=== PATIENT | male | born 1970 | race Caucasian/White ===

== ENCOUNTER 2024-11-24 14:02 | Inpatient (IN) | payer OTHER, SELFPAY ==
[2024-11-24] VITALS (39 sets, daily range): BP systolic 100–180; BP diastolic 59–99; BMI 32.1
--- NOTE | 2024-11-24 09:26 | ED.GENMED ---
History of Present Illness
<Katarzyna Robin LANDMEN - Last Filed: 11/24/24 16:01>
General
Chief Complaint: Chest Pain
Source: patient
Exam Limitations: none
Time Seen by Provider: 11/24/24 09:16
Nursing documentation reviewed up to this point in time: agreed with
History of Present Illness
History of Present Illness:
54 yo male with no significant PMHX states he woke at 3 a.m. with mid non radiating CP, thought it was indigestion, took TUMS with no relief. Didn't sleep since and pain has been consistent, 2/10 'annoying.' A little while after CP noted, right
upper arm felt 'sore' and then at 7 a.m. left upper arm felt 'sore.'
Denies n/v/d/c. Denies SOB, abd pain. Denies lightheadedness, weakness, numbness in extremities.
No recollection of overuse or injury to cause sore upper arms
Past History
<Katarzyna Robin, LANDMEN - Last Filed: 11/24/24 16:01>
Past History
ED Past Medical History: None
ED Past Surgical History: Orthopedic (Knee arthroscopy)
Social History
Tobacco: Smoker
Alcohol: Occasional
Personal:
Living: with family
Employment: Employed
Family History
Family History: CAD (Mother MS age 60 w bypass, still alive. Maternal uncle MS age 40, still alive)
Review of Systems
<Katarzyna Robin LANDMEN - Last Filed: 11/24/24 16:01>
Review of Systems
Allergies reviewed?: Yes
All Other Systems: ROS reviewed and negative except as documented in HPI and ROS
Constitutional: Denies fever or fatigue
Respiratory: Denies trouble breathing
Cardiac: Reports chest pain; Denies diaphoresis or palpitations
ABD/GI: Denies abdominal pain, nausea, vomiting or diarrhea
Phy Exam
<Katarzyna Robin, LANDMEN - Last Filed: 11/24/24 16:01>
Physical Exam
Physical Exam:
GENERAL: No acute distress. A&Ox3.
CONSTITUTIONAL: Afebrile.
EYES: clear, conjunctivae normal
ENMT: moist mucus membranes, Pharynx nl
RESPIRATORY: Regular respirations, nonlabored, lungs clear.
CARDIOVASCULAR: Regular rate and rhythm, no murmurs, no rubs.
GI: Soft, nontender, normal BS
MUSCULOSKELETAL: Moves with ease. Well perfused.
SKIN: Warm, dry, pink
PSYCH: Normal mood and affect. Well kept, interactive and appropriate
NEUROLOGIC: Awake, alert and oriented. No focal neurological deficits
Scores
<Katarzyna Robin, LANDMEN - Last Filed: 11/24/24 16:01>
Heart Score for Chest Pain Patients
STEMI patient?: No
History: Moderately Suspicious
ECG: Nonspecific Repolarization
Age: </= 45 years
Risk Factors: >/= 3 Risk Factors or History of CAD
Troponin: >/= 3 x Normal Limit
Heart Score for Chest Pain Patients: 6
Heart Score Risk: 20.3% MACE over next 6 weeks
Course
<Katarzyna Robin, LANDMEN - Last Filed: 11/24/24 16:01>
Orders/Labs/Results
Orders:
Orders
11/24/24 08:22
EKG [Electrocardiogram (*1)] Urgent
Reason for Study: Chest Pain
EKG- Treatment ONCE
11/24/24 09:22
Complete Blood Count/With Diff Urgent
Comprehensive Metabolic Panel Urgent
PTT Urgent
Comment: Obtain baseline before beginning heparin infusion if not already collected
Prothrombin Time Urgent
Troponin I Urgent
11/24/24 09:26
CR Chest - 2 Views Urgent
Comment:
Reason For Exam: chest pain
11/24/24 Lunch
NPO
Allow oral meds: No
Allow clear liquids: No
11/24/24 10:12
Heparin 4,000 units IV NOW STA
Nursing to Place Non Medication Order As Directed
Physician Order: PTT 6 hours after initial start of Heparin infusion
Above order entered?: Yes
11/24/24 10:13
Aspirin Chewable [Low Strength Aspirin] 324 mg PO NOW STA
11/24/24 10:14
Electrocardiogram (*1) Urgent
Reason for Study: Chest Pain
EKG- Treatment ONCE
11/24/24 10:15
Heparin 13761 Units/250 ml 25,000 units in 250 ml IV PER PROTOCOL
Weight to be used for heparin protocol in kilograms (kg):: 104.326
Protocol:: Cardiac Tx/Acute Coronary
PTT Goal Range to be used:: PTT 73 to 111 seconds
Order type:: Initial
INITIAL Infusion Dose (UNITS/KG/hr) & then follow protocol:: 12 units/kg/hr
Infusion Dose in UNITS/hr & then follow protocol (UNITS/hr):: 1,000
INFUSION RATE in mL/hr & then follow protocol (mL/hr):: 10
PTT less than or equal to 64 seconds:: Increase rate by 200 units/hr (+ 2 mL/hr)
PTT 64.1 to 72.9 seconds:: Increase rate by 100 units/hr (+ 1 mL/hr)
PTT 73 to 111 seconds:: Target Range. No change in rate.
PTT 111.1 to 130.9 seconds:: Decrease rate by 100 units/hr (- 1 mL/hr)
PTT 131 to 199.9 seconds:: HOLD for 1 hr. Then decrease rate by 200 units/hr (- 2 mL/hr)
PTT greater than or equal to 200 seconds:: HOLD for 2 hrs & Notify Provider. Then decrease by 200 units/hr (-
2 mL/hr)
Lab follow-up:: Each change, PTT q6h until 2 consecutive are therapeutic. Then PTT
daily.
11/24/24 10:17
CARDIOLOGY CONSULT Urgent
Consulting Provider: Cooper Taveras
Was physician already notified: Yes
Reason for consult: Claribel
Nitroglycerin Sublingual [Nitrostat (Sublingual)] 0.4 mg SL NOW STA
11/24/24 10:27
Nitroglycerin 100 mg/250 ml [Nitroglycerin Premix] 100 mg in 250 ml .ROUTE .STK-MED
11/24/24 10:32
Nitroglycerin 100 mg/250 ml [Nitroglycerin Premix] 100 mg in 250 ml IV NOW
Initial dose in mcg/min, then titrate:: 10
Titrate to keep:: SBP < 160 mmHg
Titrate by mcg/min:: 5 mcg/min, may increase by 10 mcg/min if dose > 20 mcg/min
Frequency of titrations (minutes):: every 3-5 minutes
Maximum dose in mcg/min:: 200
Begin to taper infusion when:: Remained at goal for 2hrs
Taper by mcg/min:: 5 mcg/min
Frequency of taper (minutes) if patient maintains goal:: 30
Taper to off?: Yes
If infusion off & no longer maintaining goal:: Contact Provider
11/24/24 10:55
Add On- LAB Urgent
Tests Added?: PT/INR
11/24/24 11:01
Echo 2D MMode Color/Doppler Urgent
Reason for Study: chest pain, elevated troponin
11/24/24 12:46
Verapamil Injectable [Isoptin/Verapamil Injection] 5 mg .ROUTE .STK-MED ONE
11/24/24 12:47
Heparin 1000 Units/500 ml [Heparin] 1,000 units in 500 ml .ROUTE .STK-MED
Heparin Sodium,Porcine/Ns/Pf [Heparin 2000 Units/1000 ml] 2,000 unit in 1,000 ml .ROUTE .STK-MED
Lidocaine HCl/Pf [Xylocaine-Mpf 1% Vial] 50 mg .ROUTE .STK-MED ONE
Nitroglycerin [Tridil] 1,500 mcg .ROUTE .STK-MED ONE
11/24/24 12:52
Fentanyl Citrate/Pf [Sublimaze] 100 mcg .ROUTE .STK-MED ONE
Heparin 10,000 units .ROUTE .STK-MED ONE
Midazolam HCl [Versed] 2 mg .ROUTE .STK-MED ONE
11/24/24 13:40
Acetaminophen [Tylenol] 650 mg PO Q4HPRN PRN
Activity As Directed
Activity Level: Out of Bed- Ad Jewell
Activity Frequency: Ad Jewell
Bee Worker Procedure As Directed
Cardiac Cath Procedure: cardiac catheterization
Notify MD As Directed
Notify physician if: immediately for chest pain or bleeding from access site(s)
Radial Artery Hemostasis Method As Directed
Instructions:: 3 mL out at 1 hour post placement of band
3 mL out at 1 1/2 hours post placement of band
3 mL out at 2 hours post placement of band
Off at 2 1/2 hours post placement of band
If any oozing or hemotoma occurs:: re-inflate band and call provider
Site Checks As Directed
Check access site for bleeding/hematoma: Yes
Comment: on arrival, Q15min x4, Q30min x2, Q1 hr x2, Q2 hr x2, Q4 hr or per
protocol
Vascular Checks As Directed
Location: distal to access site - pulse check
Frequency: Other
Comment: on arrival, Q15min x4, Q30min x2, Q1 hr x2, Q2 hr x2, Q4 hr or per protocol
Vital Signs As Directed
Frequency: Other
Additional Instructions:: on arrival, Q15min x4, Q30min x2, Q1 hr x2, Q2 hr x2, then Q4 hr or per unit
protocol
11/24/24 13:43
Cardiothoracic Surgery Consult Routine
Consulting Provider: Ronald Jaimes
Was physician already notified: Yes
Reason for Consult: CABG eval
11/24/24 13:45
0.9% Sodium Chloride 1000 ml [Nss] 1,000 ml IV PER PROTOCOL
Infusion rate in mL/kg/hr:: 1.5
Infusion rate in mL/hr:: 156
Duration of infusion (hours):: 3
11/24/24 14:02
Admit/Transfer Patient As Directed
Co-Sign Provider:
Level of Care: Inpatient admission
Assign to:: IVU
Physician / Group: carline dodd
Transfer to: IVU
Reason for Hospitalization: ches pain, unstable angina/nstemi
Expected length of stay greater than two midnights?: Yes
ELOS- Estimated Length of Stay in days: 2
I certify the patient meets the requirements for IP care: Yes
PRN Pain Medication Management As Directed
May give lesser potent ordered pain med per pt: Yes
preference::
Protocol:: Medication orders for pain may be administered in a
manner that supports deferring to patient preference
when the pt is:
- Requesting an ordered lesser potent pain medication.
Least to most potent pain medications are defined
as: acetaminophen < NSAID < tramadol < opioids
(morphine, oxycodone, hydromorphone).
- Requesting a lesser dose of the same medication IF
ORDERED.
- Requesting a less intrusive route of administration
if both routes are prescribed by the provider (PO <
IV).
11/24/24 14:12
Code Status As Directed
Resuscitation Status: Full Code
11/24/24 15:00
Lisinopril [Zestril] 2.5 mg PO DAILY
11/24/24 15:15
0.9% Sodium Chloride 1000 ml [Nss] 1,000 ml IV PER PROTOCOL
Infusion rate in mL/kg/hr:: 1.5
Infusion rate in mL/hr:: 156
Duration of infusion (hours):: 3
11/24/24 15:36
Verapamil Injectable [Isoptin/Verapamil Injection] 5 mg .ROUTE .STK-MED ONE
11/24/24 15:37
Fentanyl Citrate/Pf [Sublimaze] 100 mcg .ROUTE .STK-MED ONE
Heparin 10,000 units .ROUTE .STK-MED ONE
Heparin 1000 Units/500 ml [Heparin] 1,000 units in 500 ml .ROUTE .STK-MED
Heparin Sodium,Porcine/Ns/Pf [Heparin 2000 Units/1000 ml] 2,000 unit in 1,000 ml .ROUTE .STK-MED
Lidocaine HCl/Pf [Xylocaine-Mpf 1% Vial] 50 mg .ROUTE .STK-MED ONE
Midazolam HCl [Versed] 2 mg .ROUTE .STK-MED ONE
Nitroglycerin [Tridil] 1,500 mcg .ROUTE .STK-MED ONE
11/24/24 15:43
Troponin I Q6H
11/24/24 15:56
Accucheck [Bedside Glucose Monitoring] As Directed
Frequency: AC&HS
11/24/24 15:57
Dextrose 50%-Water [Dextrose 50% Syringe] 12.5 grams IV [id number] PRN
Glucagon [GlucaGen] 1 mg IM PRN PRN
11/24/24 16:30
Insulin Aspart Corrective Low [Novolog Flexpen-Low Resistance] See Protocol SC AC
11/24/24 18:00
Atorvastatin [Lipitor] 80 mg PO QPM
Atorvastatin [Lipitor] 80 mg PO QPM
11/24/24 21:00
Troponin I Q6H
11/25/24 03:00
Troponin I Q6H
11/25/24 06:00
Basic Metabolic Panel IN AM
Cardiovascular Evaluation IN AM
Complete Blood Count/No Diff IN AM
Hemoglobin A1c [Glycohemoglobin (HgbA1c)] IN AM
11/25/24 08:00
Aspirin Chewable [Low Strength Aspirin] 81 mg PO DAILY
Aspirin Chewable [Low Strength Aspirin] 81 mg PO DAILY
Abnormal Lab Results
11/24/24
09:22
WBC 16.0 H 10^3/uL
(4.8-10.8)
MPV 11.2 H fL
(7.4-10.4)
Abs Immat Gran (auto) 0.1 H 10^3/uL
(0-0.05)
Absolute Neuts (auto) 12.8 H 10^3/uL
(1.4-6.5)
Absolute Monos (auto) 0.8 H 10^3/uL
(0.1-0.6)
Neutrophils % 80.1 H %
(42.2-75.2)
Lymphocytes % 14.2 L %
(20.5-51.1)
Carbon Dioxide 21 L mmol/L
(22-30)
Creatinine 0.5 L mg/dL
(0.7-1.3)
Glucose 345 H mg/dl
(70-99)
Calcium 10.9 H mg/dl
(8.4-10.2)
Alkaline Phosphatase 136 H U/L
(38-126)
Troponin I 0.892 H* ng/ml
11/24/24 09:22
11/24/24 09:22
Vital Signs
Initial and Last Documented VS:
Initial Vital Signs
Temp Pulse Resp BP Pulse Ox
98.9 F 99 18 180/96 100
11/24/24 08:26 11/24/24 08:26 11/24/24 08:26 11/24/24 08:26 11/24/24 08:26
Last Documented Vital Signs
Temp Pulse Resp BP Pulse Ox
98.6 F 103 18 149/80 96
11/24/24 13:50 11/24/24 15:04 11/24/24 13:50 11/24/24 15:04 11/24/24 13:50
Third Grade Teacher consulted with Physician
Third Grade Teacher consulted with physician?: Yes
Name of Physician Consulted: Jony
<Keagan Borges MD - Last Filed: 11/24/24 10:42>
Orders/Labs/Results
Orders:
Orders
11/24/24 08:22
EKG [Electrocardiogram (*1)] Urgent
Reason for Study: Chest Pain
EKG- Treatment ONCE
11/24/24 09:22
Complete Blood Count/With Diff Urgent
Comprehensive Metabolic Panel Urgent
PTT Urgent
Comment: Obtain baseline before beginning heparin infusion if not already collected
Prothrombin Time Urgent
Troponin I Urgent
11/24/24 09:26
CR Chest - 2 Views Urgent
Comment:
Reason For Exam: chest pain
11/24/24 Lunch
NPO
Allow oral meds: No
Allow clear liquids: No
11/24/24 10:12
Heparin 4,000 units IV NOW STA
Nursing to Place Non Medication Order As Directed
Physician Order: PTT 6 hours after initial start of Heparin infusion
Above order entered?: Yes
11/24/24 10:13
Aspirin Chewable [Low Strength Aspirin] 324 mg PO NOW STA
11/24/24 10:14
Electrocardiogram (*1) Urgent
Reason for Study: Chest Pain
EKG- Treatment ONCE
11/24/24 10:15
Heparin 20201 Units/250 ml 25,000 units in 250 ml IV PER PROTOCOL
Weight to be used for heparin protocol in kilograms (kg):: 104.326
Protocol:: Cardiac Tx/Acute Coronary
PTT Goal Range to be used:: PTT 73 to 111 seconds
Order type:: Initial
INITIAL Infusion Dose (UNITS/KG/hr) & then follow protocol:: 12 units/kg/hr
Infusion Dose in UNITS/hr & then follow protocol (UNITS/hr):: 1,000
INFUSION RATE in mL/hr & then follow protocol (mL/hr):: 10
PTT less than or equal to 64 seconds:: Increase rate by 200 units/hr (+ 2 mL/hr)
PTT 64.1 to 72.9 seconds:: Increase rate by 100 units/hr (+ 1 mL/hr)
PTT 73 to 111 seconds:: Target Range. No change in rate.
PTT 111.1 to 130.9 seconds:: Decrease rate by 100 units/hr (- 1 mL/hr)
PTT 131 to 199.9 seconds:: HOLD for 1 hr. Then decrease rate by 200 units/hr (- 2 mL/hr)
PTT greater than or equal to 200 seconds:: HOLD for 2 hrs & Notify Provider. Then decrease by 200 units/hr (-
2 mL/hr)
Lab follow-up:: Each change, PTT q6h until 2 consecutive are therapeutic. Then PTT
daily.
11/24/24 10:17
CARDIOLOGY CONSULT Urgent
Consulting Provider: Cooper Taveras
Was physician already notified: Yes
Reason for consult: Claribel
Nitroglycerin Sublingual [Nitrostat (Sublingual)] 0.4 mg SL NOW STA
11/24/24 10:27
Nitroglycerin 100 mg/250 ml [Nitroglycerin Premix] 100 mg in 250 ml .ROUTE .STK-MED
11/24/24 10:32
Nitroglycerin 100 mg/250 ml [Nitroglycerin Premix] 100 mg in 250 ml IV NOW
Initial dose in mcg/min, then titrate:: 10
Titrate to keep:: SBP < 160 mmHg
Titrate by mcg/min:: 5 mcg/min, may increase by 10 mcg/min if dose > 20 mcg/min
Frequency of titrations (minutes):: every 3-5 minutes
Maximum dose in mcg/min:: 200
Begin to taper infusion when:: Remained at goal for 2hrs
Taper by mcg/min:: 5 mcg/min
Frequency of taper (minutes) if patient maintains goal:: 30
Taper to off?: Yes
If infusion off & no longer maintaining goal:: Contact Provider
11/24/24 10:55
Add On- LAB Urgent
Tests Added?: PT/INR
11/24/24 11:01
Echo 2D MMode Color/Doppler Urgent
Reason for Study: chest pain, elevated troponin
11/24/24 12:46
Verapamil Injectable [Isoptin/Verapamil Injection] 5 mg .ROUTE .STK-MED ONE
11/24/24 12:47
Heparin 1000 Units/500 ml [Heparin] 1,000 units in 500 ml .ROUTE .STK-MED
Heparin Sodium,Porcine/Ns/Pf [Heparin 2000 Units/1000 ml] 2,000 unit in 1,000 ml .ROUTE .STK-MED
Lidocaine HCl/Pf [Xylocaine-Mpf 1% Vial] 50 mg .ROUTE .STK-MED ONE
Nitroglycerin [Tridil] 1,500 mcg .ROUTE .STK-MED ONE
11/24/24 12:52
Fentanyl Citrate/Pf [Sublimaze] 100 mcg .ROUTE .STK-MED ONE
Heparin 10,000 units .ROUTE .STK-MED ONE
Midazolam HCl [Versed] 2 mg .ROUTE .STK-MED ONE
11/24/24 13:40
Acetaminophen [Tylenol] 650 mg PO Q4HPRN PRN
Activity As Directed
Activity Level: Out of Bed- Ad Jewell
Activity Frequency: Ad Jewell
Bee Worker Procedure As Directed
Cardiac Cath Procedure: cardiac catheterization
Notify MD As Directed
Notify physician if: immediately for chest pain or bleeding from access site(s)
Radial Artery Hemostasis Method As Directed
Instructions:: 3 mL out at 1 hour post placement of band
3 mL out at 1 1/2 hours post placement of band
3 mL out at 2 hours post placement of band
Off at 2 1/2 hours post placement of band
If any oozing or hemotoma occurs:: re-inflate band and call provider
Site Checks As Directed
Check access site for bleeding/hematoma: Yes
Comment: on arrival, Q15min x4, Q30min x2, Q1 hr x2, Q2 hr x2, Q4 hr or per
protocol
Vascular Checks As Directed
Location: distal to access site - pulse check
Frequency: Other
Comment: on arrival, Q15min x4, Q30min x2, Q1 hr x2, Q2 hr x2, Q4 hr or per protocol
Vital Signs As Directed
Frequency: Other
Additional Instructions:: on arrival, Q15min x4, Q30min x2, Q1 hr x2, Q2 hr x2, then Q4 hr or per unit
protocol
11/24/24 13:43
Cardiothoracic Surgery Consult Routine
Consulting Provider: Ronald Jaimes
Was physician already notified: Yes
Reason for Consult: CABG eval
11/24/24 13:45
0.9% Sodium Chloride 1000 ml [Nss] 1,000 ml IV PER PROTOCOL
Infusion rate in mL/kg/hr:: 1.5
Infusion rate in mL/hr:: 156
Duration of infusion (hours):: 3
11/24/24 14:02
Admit/Transfer Patient As Directed
Co-Sign Provider:
Level of Care: Inpatient admission
Assign to:: IVU
Physician / Group: carline dodd
Transfer to: IVU
Reason for Hospitalization: ches pain, unstable angina/nstemi
Expected length of stay greater than two midnights?: Yes
ELOS- Estimated Length of Stay in days: 2
I certify the patient meets the requirements for IP care: Yes
PRN Pain Medication Management As Directed
May give lesser potent ordered pain med per pt: Yes
preference::
Protocol:: Medication orders for pain may be administered in a
manner that supports deferring to patient preference
when the pt is:
- Requesting an ordered lesser potent pain medication.
Least to most potent pain medications are defined
as: acetaminophen < NSAID < tramadol < opioids
(morphine, oxycodone, hydromorphone).
- Requesting a lesser dose of the same medication IF
ORDERED.
- Requesting a less intrusive route of administration
if both routes are prescribed by the provider (PO <
IV).
11/24/24 14:12
Code Status As Directed
Resuscitation Status: Full Code
11/24/24 15:00
Lisinopril [Zestril] 2.5 mg PO DAILY
11/24/24 15:15
0.9% Sodium Chloride 1000 ml [Nss] 1,000 ml IV PER PROTOCOL
Infusion rate in mL/kg/hr:: 1.5
Infusion rate in mL/hr:: 156
Duration of infusion (hours):: 3
11/24/24 15:36
Verapamil Injectable [Isoptin/Verapamil Injection] 5 mg .ROUTE .STK-MED ONE
11/24/24 15:37
Fentanyl Citrate/Pf [Sublimaze] 100 mcg .ROUTE .STK-MED ONE
Heparin 10,000 units .ROUTE .STK-MED ONE
Heparin 1000 Units/500 ml [Heparin] 1,000 units in 500 ml .ROUTE .STK-MED
Heparin Sodium,Porcine/Ns/Pf [Heparin 2000 Units/1000 ml] 2,000 unit in 1,000 ml .ROUTE .STK-MED
Lidocaine HCl/Pf [Xylocaine-Mpf 1% Vial] 50 mg .ROUTE .STK-MED ONE
Midazolam HCl [Versed] 2 mg .ROUTE .STK-MED ONE
Nitroglycerin [Tridil] 1,500 mcg .ROUTE .STK-MED ONE
11/24/24 15:43
Troponin I Q6H
11/24/24 15:56
Accucheck [Bedside Glucose Monitoring] As Directed
Frequency: AC&HS
11/24/24 15:57
Dextrose 50%-Water [Dextrose 50% Syringe] 12.5 grams IV [id number] PRN
Glucagon [GlucaGen] 1 mg IM PRN PRN
11/24/24 16:30
Insulin Aspart Corrective Low [Novolog Flexpen-Low Resistance] See Protocol SC AC
11/24/24 18:00
Atorvastatin [Lipitor] 80 mg PO QPM
Atorvastatin [Lipitor] 80 mg PO QPM
11/24/24 21:00
Troponin I Q6H
11/25/24 03:00
Troponin I Q6H
11/25/24 06:00
Basic Metabolic Panel IN AM
Cardiovascular Evaluation IN AM
Complete Blood Count/No Diff IN AM
Hemoglobin A1c [Glycohemoglobin (HgbA1c)] IN AM
11/25/24 08:00
Aspirin Chewable [Low Strength Aspirin] 81 mg PO DAILY
Aspirin Chewable [Low Strength Aspirin] 81 mg PO DAILY
Abnormal Lab Results
11/24/24
09:22
WBC 16.0 H 10^3/uL
(4.8-10.8)
MPV 11.2 H fL
(7.4-10.4)
Abs Immat Gran (auto) 0.1 H 10^3/uL
(0-0.05)
Absolute Neuts (auto) 12.8 H 10^3/uL
(1.4-6.5)
Absolute Monos (auto) 0.8 H 10^3/uL
(0.1-0.6)
Neutrophils % 80.1 H %
(42.2-75.2)
Lymphocytes % 14.2 L %
(20.5-51.1)
Carbon Dioxide 21 L mmol/L
(22-30)
Creatinine 0.5 L mg/dL
(0.7-1.3)
Glucose 345 H mg/dl
(70-99)
Calcium 10.9 H mg/dl
(8.4-10.2)
Alkaline Phosphatase 136 H U/L
(38-126)
Troponin I 0.892 H* ng/ml
11/24/24 09:22
11/24/24 09:22
Vital Signs
Initial and Last Documented VS:
Initial Vital Signs
Temp Pulse Resp BP Pulse Ox
98.9 F 99 18 180/96 100
11/24/24 08:26 11/24/24 08:26 11/24/24 08:26 11/24/24 08:26 11/24/24 08:26
Last Documented Vital Signs
Temp Pulse Resp BP Pulse Ox
98.6 F 103 18 149/80 96
11/24/24 13:50 11/24/24 15:04 11/24/24 13:50 11/24/24 15:04 11/24/24 13:50
<Katarzyna Robin NP - Last Filed: 11/24/24 16:01>
MDM/Problems Addressed
Differential Diagnosis Includes:
ACS, GERD
MDM/Problems Addressed:
54 yo male with no significant PMHX states he woke at 3 a.m. with mid non radiating CP, thought it was indigestion, took TUMS with no relief. Didn't sleep since and pain has been consistent, 2/10 'annoying.' A little while after CP noted, right
upper arm felt 'sore' and then at 7 a.m. left upper arm felt 'sore.'
Denies n/v/d/c. Denies SOB, abd pain. Denies lightheadedness, weakness, numbness in extremities.
No recollection of overuse or injury to cause sore upper arms
Afebrile, NAD
EKG: NSR
10:15
Troponin 0.892
CBC: WBC16.0 w elevated Neutrophils
CMP: No clinically significant abnormality
Dr. Sanford, cardiology consulted
Hospitalist notified
Dr. Borges in to examine
ASA, Heparin drip and NTG drip ordered.
Chest Pain remains 2
<Katarzyna Robin LANDMEN - Last Filed: 11/24/24 16:01>
*EKG
EKG Intrepretation Date: 11/24/24
Interpretation: normal
Heart Rate: 93
Rate: normal
Rhythm: sinus
[place]: normal axis
Interval: normal interval
QRS Pattern: normal QRS
Ischemia: no ischemia
*Critical Care Note
Total Time (30-74mins, 75-104mins- exclusive of procedures): Not Applicable
ED Attending Note
<Katarzyna Robin LANDMEN - Last Filed: 11/24/24 16:01>
-
Portions of this chart may have been created with voice recognition software.� Occasional wrong word or��sound alike� substitutions may have occurred due to the inherent limitations of voice recognition software.
<Keagan Borges MD - Last Filed: 11/24/24 10:42>
ED Attending Note
Patient seen and examined by attending physician: Yes
ED Attending Note:
Patient without any significant past medical history, presents to ED secondary to sudden onset of left-sided chest pain, which woke the patient up from sleep this morning around 3 AM. Chest pain described as a 'nuisance', with intermittent
radiation to his arm, without any alleviating or exacerbating factors. Of note, patient has had similar symptoms over the years, which has always been alleviated when taking antiacid medication, i.e. Tums, which did not work this time. Denies
recent illness. Denies recent travel or surgery. Denies leg pain or swelling. Patient does not take any medications daily. However, patient does smoke and drink alcohol occasionally. There is family history of heart disease, including his uncle
with MS in his 40s.
Physical Exam
General: no apparent distress, not acutely ill. afebrile
Head: nc/at. eomi
Neck: supple. normal range of motion.
Heart: s1/s2 regular rate and rhythm, no murmur.
Lungs: no acute respiratory distress. clear bilaterally
Abdomen: normal bowel sounds. not tender.
Neuro: alert and oriented x 3. no focal neurological deficits
Skin: no rash
Psychiatric: well kept. interactive and cooperative
Extremities: no edema. no calf tenderness.
History, exam, and blood work concerning for non-STEMI. EKG without any acute ST elevation, when repeated.
Leukocytosis noted, without any evidence of focal infection. ? Reactive
Patient given aspirin, heparin protocol, along with nitroglycerin. After initial sublingual nitroglycerin administration, patient reports improvement in his chest pain, but caused his blood pressure to decrease. Will initiate nitroglycerin
infusion and titrate to comfort, with careful consideration for his blood pressure.
Discussed with on-call cardiology, Dr. Taveras, who will come and evaluate the patient.
Critical care statement: A total of 40 minutes of critical care time was provided for this patient. This includes management of unstable vital signs, evaluation of the patient at bedside, reviewing the patient's pertinent medical records, discussion
with consultants, review of old EKGs and review of pertinent medical records. This time with separate from time utilized to perform the aforementioned documented procedures
Discharge Plan
Departure
Patient Disposition: Admit
Date of Disposition: 11/24/24
Time of Disposition: 10:21
Admit to: IVU
Presentation/result/management discussed w/ accepting MD/DO: Hospitalist
Condition: Fair
Discharge Problem:
ACS (acute coronary syndrome), Acute non-ST elevation myocardial infarction (NSTEMI)
Interventions
Interventions:
*General Assessment Last Done: 11/24/24 08:26
*Neglect/Abuse Screening Last Done: 11/24/24 08:26
*Nursing Disposition Last Done: 11/24/24 13:10
ED- Cardiac Assessment Last Done: 11/24/24 09:43
Discharge Date and Time
Discharge Date/Time: 11/24/24 13:11
[2024-11-24 09:37] LABS: % Basophils 0.3 % (0-2); % Eosinophils 0.1 % (0-6); % Immature Granulocytes 0.4 % (0-0.5); % Lymphocytes 14.2 % (20.5-51.1); % Monocytes 4.9 % (1.7-9.3); % Neutrophils 80.1 % (42.2-75.2); Absolute Basophils 0.1 10^3/uL (0-0.2); Absolute Immature Granulocytes 0.1 10^3/uL (0-0.05); Absolute Lymphocytes 2.3 10^3/uL (1.2-3.4); Absolute Monocytes 0.8 10^3/uL (0.1-0.6); Absolute Neutrophils 12.8 10^3/uL (1.4-6.5); Hematocrit 51.5 % (39.0-52.0); Hemoglobin 17.7 g/dL (13.0-18.0); Mean Corp Hgb Conc. 34.4 g/dL (33.0-37.0); Mean Corpuscular Hgb 30.6 pg (27.0-31.0); Mean Corpuscular Volume 88.9 fL (80.0-94.0); Mean Platelet Volume 11.2 fL (7.4-10.4); Nucleated Red Blood Cells % 0 % (-); Platelet Count 231 10^3/uL (130-400); Red Blood Cell Count 5.79 10^6/uL (4.70-6.10); Red Cell Dist. Width 13.1 % (11.5-14.5)
[2024-11-24 09:54] LABS: ALT (SGPT) 17 U/L (0-50); AST (SGOT) 35 U/L (17-59); Albumin 4.7 g/dl (3.5-5.0); Alkaline Phosphatase 136 U/L (38-126); Blood Urea Nitrogen 11 mg/dl (9-20); Calcium 10.9 mg/dl (8.4-10.2); Carbon Dioxide 21 mmol/L (22-30); Chloride 100 mmol/L (98-107); Estimated Creatinine Clearance > 125 ml/min; Glucose 345 mg/dl (70-99); Potassium 4.5 mmol/L (3.5-5.1); Sodium 135 mmol/L (135-145); Total Bilirubin 1.1 mg/dl (0.2-1.3); Total Protein 7.1 g/dl (6.3-8.2); eGFR > 60.00
[2024-11-24 10:10] LABS: Troponin I 0.892 ng/ml
[2024-11-24] MEDS: NITROSTAT (SUBLINGUAL) 0.4 MG SL (10:20)
[2024-11-24] MEDS: LOW STRENGTH ASPIRIN 324 MG PO (10:20)
[2024-11-24] MEDS: HEPARIN 4000 UNITS IV (10:21)
[2024-11-24] MEDS: NITROGLYCERIN PREMIX 250 IV (10:38)
[2024-11-24 10:43] LABS: APTT 25.8 Sec (23.4-35.0)
[2024-11-24] MEDS: HEPARIN 25000 UNITS/250 ML IV (10:47)
--- NOTE | 2024-11-24 11:01 | CON.CAR ---
Addendum entered and electronically signed by Cooper Taveras MD 11/24/24 12:04:
I saw and examined the patient.
The Route Aide's note was reviewed and I agree with the note.
Comment: Briefly, 54-year-old man who is a smoker and has family history of CAD who presents with substernal chest discomfort which awoke him from sleep earlier this morning. Patient tells me he took antacids but pain persisted and then began
radiating to shoulder/arms which prompted him to come to [place] emergency department for further evaluation.
ECGs without obvious ischemic changes
However troponin was mildly elevated at 0.9 consistent with NSTEMI, would trend to peak
Transthoracic echocardiogram with preserved LV function and no obvious regional wall motion abnormalities
Patient was treated with sublingual nitro and pain improved but did not completely resolve and therefore IV nitro drip was started; would uptitrate until he is chest pain-free
Plan for medical management with aspirin, high intensity statin and heparin drip. Beta-geronimo when hemodynamics allow.
Tentative plan for invasive coronary angiography later today.
Case discussed with ER attending and feed mill manager.
Original Note:
Consultation
Consultation Request
Date/Time Consultation Requested: 11/24/2024
Date/Time Consultation Performed: 11/24/2024
Requesting Provider: Dr. Borges
Performing Provider: Gloria Tapia PA-C for Dr. Taveras
Reason for Consultation: Chest pain, NSTEMI
Medical History
-
History of Present Illness:
HPI: Alberto is a 54 year old male with PMH of tobacco abuse and family h/o premature CAD who presented to [facility] for evaluation of chest pain. He states he woke up around 3AM with left sided chest pressure which he describes as a 2/10 annoying ache.
He took 3 TUMS to see if this would relieve the pain, however pain persisted. This AM he still had the discomfort, so took more TUMS at 7AM, but still pain did not resolve, so he came to ER for evaluation. He notes he had intermittent pains like
this over the past few months, but typically he takes TUMS and the pain resolves within 30 minutes to an hour. He states the pain was persistent at 2/10 severity and did not get better or worse with walking his dogs, changing positions, or drinking
coffee. In ER, ECG showed SR with no acute ischemic changes, however initial troponin returned elevated at 0.892. He was given 324mg of aspirin in ER and SL nitro. With this, he states the discomfort has improved, but does still feel 'something is
going on' in his chest, 1/10 in severity. Started on heparin and cardiology consulted. He notes he has not had routine medical care, but gets 'yearly work physicals' and notes he was never told of any abnormality with this. He smokes 2 packs of
cigarettes per week and drinks alcohol occasionally. He does have strong family h/o CAD on his mothers side.
PMH:
Tobacco abuse
Family h/o premature CAD
Past Medical History
Past Medical History: Other (In HPI)
Past Surgical History: Orthopedic (knee arthoscopy)
Social History
Tobacco: Smoker (2 packs per week)
Alcohol: Occasional
Drug: None
Personal:
Living: With Family
Employment: Employed ([employer] at [employer])
Family History
Family History: Early CAD
Allergies / Home Medications
Allergy/AdvReac Type Severity Reaction Status Date / Time
No Known Allergies Allergy Unverified 11/24/24 08:26
�Medication �Instructions �Recorded �Confirmed �Type
No Meds [No Current Medications] 11/24/24 11/24/24 History
Review of Systems
-
History Source: Patient
All other systems: Negative unless noted
Physical Exam
Vital Signs
Temp Pulse Resp BP Pulse Ox
98.9 F 106 10 124/72 100
11/24/24 08:26 11/24/24 10:31 11/24/24 10:30 11/24/24 10:31 11/24/24 08:26
Lab Results
11/24/24 09:22
11/24/24 09:22
Troponin I 0.892 ng/ml H* 11/24/24 09:22
Physical Exam
General: Well Developed, Well Nourished and No Apparent Distress
HEENT: Normocephalic, Anicteric and Moist Mucous Membranes
Respiratory: Clear and Non Labored Respirations
Cardiac: S1/S2 and Regular Rhythm
Musculoskeletal: No Clubbing, No Cyanosis and No Edema
Skin: Warm and Dry
Neuro: AO x 3 and Nonfocal/Grossly Intact
Psych: Calm
Impression / Plan
-
PCP: None
Criminal Justice Instructor: None prior to admission, initially seen by Dr. Taveras
Impression:
Presented with chest pain
Elevated troponin, suspect NSTEMI
Elevated glucose of 345 in ER
Leukocytosis
Tobacco abuse
Family h/o premature CAD
Echo 11/24/2024: Study pending
Plan:
-Presented with chest pain that awoke him from sleep at 3AM. Persistent despite taking Tums, prompting ER eval.
-Elevated troponin noted with initial troponin of 0.892. Continue to trend to peak.
-Aspirin 324mg given in ER, continue aspirin 81mg daily.
-Continue IV heparin
-Continue IV nitro and titrate until pain free.
-Check urgent echo.
-Suspect NSTEMI, plan will be for [facility] today. Keep NPO. Only had a cup of coffee this AM.
-Elevated glucose of 345 noted in ER. No known h/o DM, but does not follow w/ PCP. Check HgbA1c.
-Check CVE in AM and start high intensity statin.
-Chest xray with no active disease.
-Smoking cessation.
-Further recommendations to be made following echo and cath results.
HPI: Alberto is a 54 year old male with PMH of tobacco abuse and family h/o premature CAD who presented to [facility] for evaluation of chest pain. He states he woke up around 3AM with left sided chest pressure which he describes as a 2/10 annoying ache.
He took 3 TUMS to see if this would relieve the pain, however pain persisted. This AM he still had the discomfort, so took more TUMS at 7AM, but still pain did not resolve, so he came to ER for evaluation. He notes he had intermittent pains like
this over the past few months, but typically he takes TUMS and the pain resolves within 30 minutes to an hour. He states the pain was persistent at 2/10 severity and did not get better or worse with walking his dogs, changing positions, or drinking
coffee. In ER, ECG showed SR with no acute ischemic changes, however initial troponin returned elevated at 0.892. He was given 324mg of aspirin in ER and SL nitro. With this, he states the discomfort has improved, but does still feel 'something is
going on' in his chest, 1/10 in severity. Started on heparin and cardiology consulted. He notes he has not had routine medical care, but gets 'yearly work physicals' and notes he was never told of any abnormality with this. He smokes 2 packs of
cigarettes per week and drinks alcohol occasionally. He does have strong family h/o CAD on his mothers side.
Data Reviewed
-
EKG: Tracing Personally Visualized and interpreted
Radiology: Report Reviewed by me
Labs: Labs Reviewed by me
Old Records: Reviewed
[2024-11-24 11:22] LABS: INR 1.05
--- NOTE | 2024-11-24 14:00 | PTCARENOTE ---
Received pt post cath. VSS. Pt denies any chest discomfort. Will monitor.
--- NOTE | 2024-11-24 14:12 | HPS.HSE ---
Family Physician
-
Family Physician: * NONE
Chief Complaint
-
chets pain
History of Present Illness
54-year-old male who presents with chest discomfort, left-sided pressure-like woke him up from his sleep at 3 AM, radiated to his left arm it eventually started radiating over to the right armpit. Taking antacids was not relieved. States when this
typically happens it usually when he is drinking. At night before takes an acids and within 30 minutes and goes away. Chest discomfort continued on until 8 AM therefore presented to the hospital. Treated with sublingual nitroglycerin with
improvement in pain therefore started on IV nitro drip as pain was not completely resolved.
While here found to have a troponin of 0.8, evaluated by cardiology, 2D echocardiogram demonstrated LVEF 53% no regional wall motion abnormality noted. Taken to the [facility] for which she informs me that he had triple-vessel disease no stents
placed. Started on heparin drip high intensity statin aspirin.
No significant past medical history
No significant past surgical history apart from some case through scopes
Smokes 2 packs a week, drinks alcohol occasionally, no drug use
There is medical history history of atrial fibrillation open heart surgery. Strong cardiac history in mom side of family
Medical History
Past Medical History
Past Medical History: Reports None
Past Surgical History: Reports None
Social History
Tobacco: Smoker
Alcohol: Occasional
Drug: None
Family History
Family History: CAD
Allergies / Home Medications
Allergies reflects when Allergies were last updated in [facility].
Home Medications with original date entered in [facility]
Allergy/Medication List:
Allergies
Allergy/AdvReac Type Severity Reaction Status Date / Time
No Known Allergies Allergy Unverified 11/24/24 08:26
Home Medications
No Meds [No Current Medications] 11/24/24
Review of Systems
-
A 12 point ROS was completed and negative except as noted: Yes
Physical Exam
Vital Signs
Vital Signs
Temp Pulse Resp BP Pulse Ox
98.9 F 97 21 144/93 100
11/24/24 08:26 11/24/24 14:00 11/24/24 13:29 11/24/24 14:00 11/24/24 12:50
Physical Exam
General: Well Developed
Laboratory Results
-
11/24/24 09:22
11/24/24 09:22
Laboratory Results
PT 14.0 Sec (11.4-14.6) 11/24/24 09:22
INR 1.05 11/24/24 09:22
APTT Cancelled 11/24/24 16:47
Total Bilirubin 1.1 mg/dl (0.2-1.3) 11/24/24 09:22
AST 35 U/L (17-59) 11/24/24 09:22
ALT 17 U/L (0-50) 11/24/24 09:22
Alkaline Phosphatase 136 U/L (38-126) H 11/24/24 09:22
Troponin I 0.892 ng/ml H* 11/24/24 09:22
Impression/Plan
-
NAD
No JVD
RRR
CTABL
Right wrist no hematomas
Soft, nt, nd, bs+
No peripheral edema
AAOx3
NSTEMI
Multivessel coronary artery disease
Tobacco abuse
Continue aspirin
Continue beta-geronimo
Continue statin
IVF
CBC/BMP in the AM
PRN SL NTG
Have cardiothoracic surgery evaluate
Continue telemetry monitoring
Nicotine replacement therapy
--- NOTE | 2024-11-24 14:15 | ITS.CL.CATH ---
Addendum entered and electronically signed by Marcos Mackay MD 11/24/24 16:12:
Attending addendum: I reviewed angiograms with Dr. Gamez. He is uncertain the right or circumflex will be large enough vessels to receive a bypass conduit. Given these concerns we will bring the patient back to the catheterization laboratory for
percutaneous revascularization of OM1, mid and distal circumflex. Planned staged proximal to mid RCA. I met with family and discussed as did Dr. Gamez.
Original Note:
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
Cardiac Catheterization
Procedure Report:
LEFT HEART CATHETERIZATION
Date of Procedure: November 24, 2024
Referring: Dr. Cooper Taveras
PROCEDURES:
1. Left heart catheterization with coronary and single-plane left ventriculography
INDICATION: 54-year-old gentleman rarely seeks medical attention. He presented to [facility] for evaluation of substernal chest pressure which improved with medical therapy. His troponin was modestly elevated at 0.892 ng/mL and he is now
referred for coronary angiography. He is a newly diagnosed diabetic with a blood sugar of 345 mg/dL on admission blood work.
ACCESS: Right radial artery, 6 Mauritanian sheath
HEMODYNAMICS : (mmHg)
AO (s/d) : 145/79
LV (s/d) : 145/12
LVEDP : 27
CORONARY FINDINGS
DOMINANCE: Right
LEFT MAIN: Short and unobstructed
LEFT ANTERIOR DESCENDING: The LAD arises normally from the left main and runs in the anterior interventricular groove. There is a long 30% proximal LAD stenosis. A sizable diagonal branch arises from the proximal one third of the LAD. After the
diagonal branch the LAD has serial 50 and 60% stenoses. The distal LAD wraps around the apex. The first diagonal branch is large and has a long 60-70% mid stenosis. The second diagonal branch is small.
CIRCUMFLEX: The circumflex is a medium caliber nondominant vessel. OM1 arises proximally from the circumflex and is subtotally occluded in its midportion with the distal vessel filling via left to left collaterals. The circumflex terminates in a
posterolateral branch that has an 80%
RIGHT CORONARY ARTERY: The right coronary artery is a small caliber dominant vessel with a proximal 80% and mid 80-90% stenosis.
VENTRICULOGRAPHY: Left ventriculography is performed in LOZANO projection. The digital single-plane left ventricular ejection fraction is 50%.
RADIATION SUMMARY: Fluoro Time (min): 3.6, Dose (mGy): 455.6, DAP (Gy.cm2) : 42.4
Closure Device: TR band
CONCLUSIONS
1. Multivessel coronary disease with moderate diffuse atherosclerosis in the LAD and diagonal, occluded OM1 and high-grade distal circumflex / PLB. The proximal to mid RCA has significant atherosclerotic disease
2. Preserved left ventricular ejection fraction
RECOMMENDATIONS
1. Will ask CT surgery to evaluate given multivessel coronary disease and diabetes.
Copy to: Dr. Bj Taveras
[2024-11-24] MEDS: NSS 1000 IV (15:04)
[2024-11-24] MEDS: ZESTRIL 2.5 MG PO (15:04)
--- NOTE | 2024-11-24 15:18 | W.PN.UPDATE ---
Update Note
Progress Note Update
CARDIAC SURGERY ATTENDING:
It was my pleasure to evaluate Mr. Alberto Hurst. He is an extremely pleasant 54-year-old gentleman initially presented to our institution earlier today. He stated he woke at 3 AM with mild nonradiating chest pain. He initially thought this was
indigestion and took Tums but this did not relieve his pain. He did not sleep well. His pain has been consistent at a 2/10 in intensity with 'soreness' of bilateral upper extremities. He denied any associated diaphoresis or shortness of breath.
His initial troponin was noted to be 0.9 consistent with a diagnosis of NSTEMI. A echocardiogram was obtained that demonstrated an LVEF of 53% without any regional wall motion abnormalities or significant valvular heart disease (mild MR). He was
taken for cardiac catheterization. This demonstrated multivessel CAD prompting surgical evaluation. Although the patient does not have a current diagnosis of diabetes mellitus, his blood sugar was significantly elevated at 345 on his initial labs.
I personally reviewed his cardiac catheterization images. His coronaries have the appearance of diabetic CAD with multiple lesions in multiple coronary beds. Unfortunately, both his circumflex branches and the terminal branches of his RCA appear
quite diminutive. It is not clear that these would represent bypassable surgical targets. Although he has disease in his LAD and diagonal branches, these vessels are the least affected of his coronary beds. A multidisciplinary discussion with my
surgical colleague and my interventional cardiology colleagues was undertaken. It was determined that the best treatment strategy would be to attempt to address his left circumflex and RCA disease with PCI/stenting with plans for initial management
of his LAD/diagonal disease with medical therapy. Should his LAD/diagonal disease warrant intervention, consideration could be given for potential robotic MIDCAB approach versus traditional surgery in the future.
I had a long discussion with Mr. Hurst and his . We reviewed his coronary pathology and the proposed management strategy. The patient and his are agreeable with the plan.
Thank you for the opportunity to participate in the care of this kind gentleman.
Arron Gamez MD
[phone]
--- NOTE | 2024-11-24 15:58 | PTCARENOTE ---
Pt evaluated after talking w/ Dr. Gamez. Pt satated that he has had 'a nudging ache' for the past hour. VSS. Pt given lisinopril. IVF's at 156 ml/hr. Right radial cath site w/ R band intact. 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 Will
monitor.
--- NOTE | 2024-11-24 16:37 | CM ---
Chart reviewed. Patient is independent of ADLS, lives with his in a 2 STH, 2 TAYO , 0 DME. Plan is for the patient to return home. CM to follow.
--- NOTE | 2024-11-24 16:37 | CM ---
Pricing on Brilinta through the patient's [employer], ID# [id number], is $88 for a 30 day supply. Patient qualifies for $5 co pay card. Patient's [facility] has the Brilinta in stock.
--- NOTE | 2024-11-24 16:54 | PTCARENOTE ---
Pt taken to animal laboratory helper by animal laboratory helper staff at 1615.
[2024-11-24 17:07] LABS: ACT-LR - POC 269 Seconds (116-155)
[2024-11-24 17:19] LABS: ACT-LR - POC 273 Seconds (116-155)
[2024-11-24 17:32] LABS: ACT-LR - POC 398 Seconds (116-155)
[2024-11-24 18:59] LABS: ACT-LR - POC 250 Seconds (116-155)
--- NOTE | 2024-11-24 19:12 | ITS.CL.CATH ---
Food Service Manager - Catheterization
Cardiac Catheterization
Procedure Report:
ANGIOPLASTY REPORT
Date of Procedure: November 24, 2024
Referring: Dr. Cooper Taveras
INDICATIONS: This is a 54-year-old diabetic gentleman who presented to [facility] for evaluation of new onset chest discomfort and ruled in for non-ST segment elevation myocardial infarction. He was referred for coronary angiography and
was largely chest pain-free aside from a very low-grade 'uneasiness' in the chest which had persisted. Coronary angiography revealed moderate diffuse atherosclerotic disease in the LAD, occlusion of OM1, stenosis of the mid circumflex,
posterolateral branch, and RCA. He was evaluated by CT surgery and felt to have poor distal targets in the right and distal circumflex. After discussion with surgery the patient was brought back to the catheterization laboratory for percutaneous
intervention involving a complex bifurcation stent of OM1, mid circumflex, and posterolateral branch
PROCEDURES:
1. Hemodynamic assessment of the LAD with a Mulberry Verrata wire. The iFR serially measured below the ischemic at 0.75, 0.73, 0.76 in the Pd/Pa back of the guide catheter measured 0.98
2. Complex mini-crush stenting of the circumflex and OM1. OM1 was stented with overlapping 2.5 x 34 mm and 2.75 x 34 mm Ebony stent. The more distal stents were postdilated with a 2.5 and 2.75 mm noncompliant balloon. Mini crush was performed and
the ostial to mid circumflex was stented with a 3.5 x 22 mm Magnus stent.
3. Stenting of the distal circumflex into a terminal posterolateral branch with a 2.25 x 22 mm Magnus stent that was postdilated with a 3.25 mm noncompliant balloon
ACCESS: Right common femoral artery, 7 Somali sheath
HEMODYNAMIC ASSESSMENT OF THE LAD WITH A VOLCANO VERRATA WIRE: The origin of the left main was cannulated with a 7 Fr EBU 3.5 guide catheter. Intravenous heparin was administered and the ACT was followed during the procedure. Two hundred
micrograms of intracoronary nitroglycerin was given through the guide catheter. A Mulberry Verrata wire was advanced to the guide catheter tip and normalized to guide catheter pressure while the guide catheter was disengaged from the left main.
There Verrata wire was then manipulated to the distal LAD where the iFR serially measured below the ischemic threshold at 0.75, 0.73, and 0.76. The Verrata wire Pd/Pa measured 0.98 at the guide catheter. These findings are consistent with
significant LAD atherosclerosis
ANGIOPLASTY REPORT: The patient referred to the catheterization laboratory given poor surgical targets in the circumflex and RCA distribution. He had received aspirin in the emergency department and a 180 mg loading dose of ticagrelor was
administered at the beginning of the interventional procedure. The origin of the left main was cannulated with a 7 Somali EBU 3.5 guiding catheter and a BMW guidewire was advanced across the occluded segment in OM1 and into the distal vessel.
Balloon predilation was performed with a 2.0 mm Euphora balloon and anterograde flow was restored into a sizable OM1. The 2.5 x 34 mm Ebony stent was then advanced over the guidewire and position with angiographic and fluoroscopic guidance. The
Magnus stent was implanted at nominal pressures. A second Magnus stent measuring 2.75 x 34 mm was then advanced and positioned in an overlapping fashion.
A long BMW guidewire was advanced into the distal circumflex and a 3.5 x 22 mm Ebony stent was advanced to the distal circumflex. The 2.75 x 34 mm Ebony stent was withdrawn to the main body of the circumflex with about 2 to 3 mm extending beyond the
origin of OM1 into the main circumflex branch. The 2.75 x 34 mm Magnus stent was then deployed at nominal pressures. The stent delivery balloon was retracted approximately 3 to 5 mm and a high-pressure balloon inflation was again performed. The
stent delivery balloon was removed and angiography revealed wide patency of OM1 stent. The 3.5 x 22 mm Magnus stent was then retracted to the proximal circumflex and deployed crushing the ostial OM1 stent. The proximal circumflex stent was
postdilated to high pressures with a 4.0 x 8 mm balloon performing proximal optimization technique. A BMW guidewire crossed the crushed stented segment and was advanced into the distal portion of OM1. Crossing the multiple layers of stent proved
very difficult and several 1.5 x 12 mm balloons ruptured. Ultimately, I elected to rewire the crushed stented segment in a different location using a whisper wire which was advanced to OM1. A 2.0 mm balloon then crossed and serial balloon
inflations were performed creating a channel facilitating delivery of a 2.75 mm noncompliant balloon to the area of stent overlap and back to the origin of OM1. The mid circumflex stent was postdilated with a 3.5 mm noncompliant balloon. OM 1 was
dilated to high pressures with a 2.75 mm noncompliant balloon back to its origin the 3.5 mm noncompliant balloon was then inflated in the mid circumflex to high pressures. A final kissing balloon inflation to nominal pressures was performed with a
nice angiographic result.
Attention was then turned to the high-grade stenosis in the distal circumflex extending into a terminal posterolateral branch. A 2.25 x 22 mm Magnus stent was advanced over the guidewire following predilation and was positioned with angiographic and
fluoroscopic guidance. The stent was implanted at nominal pressures and postdilated to high pressures with a 3.25 mm noncompliant balloon.
COMPLICATIONS: Radiation 3.2 Gy
RADIATION SUMMARY: Fluoro Time (min): 40, Dose (mGy): 3192, DAP (Gy.cm2) : 224
CONCLUSION
1. Hemodynamically significant stenosis in the LAD with the iFR serially measuring below the ischemic threshold
2. Complex mini crush stenting of OM1 and mid circumflex. OM1 was stented with overlapping 2.75 x 34 mm and 2.5 x 34 mm Ebony stents. Mini crush stenting was performed with placement of a 3.5 x 22 mm Ebony stent from the proximal to mid circumflex.
The crushed segment was rewired and dilated with a 2.75 mm noncompliant balloon while the mid circumflex was postdilated with a 3.5 mm noncompliant balloon. Proximal optimization was performed post dilating the proximal portion of the stent and
crush segment with a 4.0 mm noncompliant balloon
3. Successful stenting of the distal circumflex into a posterolateral branch with a 2.25 x 22 mm Ebony stent that was postdilated with a 3.25 mm noncompliant balloon
RECOMMENDATIONS
1. Patient will likely return for stenting of the next 1 to mid RCA given poor distal CABG targets
2. Complex mini crush stenting of the OM1 and proximal to mid circumflex as described above.
3. Uninterrupted dual antiplatelet therapy for 12 months
4. High intensity statin and aggressive risk modification
5. Will discuss treatment options with CT surgery for LAD and diagonal atherosclerosis.
Copy to: Dr. Cooper Taveras
--- NOTE | 2024-11-24 21:33 | PTCARENOTE ---
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 Pt AAOx4 VSS. Pt denies pain or any discomfort. Rt groin wesly clean and intact, + pulses. Rt wrist dsg clean and intact with + pulses. Pt at bed rest for x 3 hrs. Call [facility] in reach
[2024-11-24 21:37] LABS: Glucose - Point of Care 241 mg/dl (70-99)
[2024-11-24] MEDS: LIPITOR 80 MG PO (22:36)
[2024-11-24] MEDS: NOVOLOG FLEXPEN-LOW RESISTANCE 300 UNITS SC (22:38)
[2024-11-25] VITALS (11 sets, daily range): BP systolic 90–113; BP diastolic 61–77; BMI 31.9
[2024-11-25 03:35] LABS: Hematocrit 47.4 % (39.0-52.0); Hemoglobin 16.3 g/dL (13.0-18.0); Mean Corp Hgb Conc. 34.4 g/dL (33.0-37.0); Mean Corpuscular Hgb 30.2 pg (27.0-31.0); Mean Corpuscular Volume 87.9 fL (80.0-94.0); Mean Platelet Volume 11.4 fL (7.4-10.4); Platelet Count 242 10^3/uL (130-400); Red Blood Cell Count 5.39 10^6/uL (4.70-6.10); Red Cell Dist. Width 13.2 % (11.5-14.5); White Blood Cell Count 12.9 10^3/uL (4.8-10.8)
[2024-11-25 04:03] LABS: Blood Urea Nitrogen 10 mg/dl (9-20); Calcium 9.3 mg/dl (8.4-10.2); Carbon Dioxide 21 mmol/L (22-30); Chloride 103 mmol/L (98-107); Estimated Creatinine Clearance > 125 ml/min; Glucose 311 mg/dl (70-99); HDL Cholesterol 32 mg/dl; LDL Cholesterol, Calculated 162 mg/dl; Potassium 4.2 mmol/L (3.5-5.1); Sodium 134 mmol/L (135-145); Total Cholesterol 230 mg/dl (50-199); Triglyceride 182 mg/dl (10-149); Very Low Density Lipoprotein 36 mg/dl (0-30); eGFR > 60.00
--- NOTE | 2024-11-25 07:04 | W.PN.CARDCBS ---
Addendum entered and electronically signed by Paul Callejas MD 11/25/24 11:07:
Patient seen and examined
Agree with PA-C notes and assessment
Agree with PA-C plan
No chest pain this morning
����Physical Exam
���������������������General:��no apparent distress, not acutely ill
���������������������������Neck:��supple. no meningeal signs. normal psoterior pharynx������������������������
���������������������������Heart:��s1/s2 regular rate and rhythm, no murmur. equal radial pulses.
��������������������������Lungs: ��no acute respiratory distress. clear bilaterally
����������������������Abdomen:�normal bowel sounds. not tender. no CVAT
��������������������������Neuro:��alert and oriented. no focal neurological deficits
������������������������������Skin: ��no rash
�����������������������Psychiatric:�well kept. interactive and cooperative
�����������������������Extremities:��no edema. no calf tenderness. negative homans. good distal pulses
��
Impression:
Presented with chest pain
NSTEMI, peak trop 69
MV CAD
s/p PCI of OM1, mid and distal circumflex 11/24/2024
Planned staged intervention of prox to mid RCAElevated glucose of 345 in ER
Leukocytosis
Tobacco abuse
Family h/o premature CAD
Echo 11/24/2024: EF 53%, mild cLVH, mild MR
Plan:
-MV CAD noted on cath. Underwent PCI of OM1, mid and distal circumflex 11/24. Planned for staged PCI of proximal to mid RCA Wednesday.
-Continue aspirin 81mg daily and Brilinta 90mg BID.
-Echo 11/24 as noted above w/ EF 53% and mild MR.
-Elevated glucose of 345 noted in ER. No known h/o DM, but does not follow w/ PCP. A1c pending
-LDL 162. New to lipitor 80mg daily.
-Smoking cessation.
-BP stable, continue lisinopril 2.5mg daily.
-Cardiac rehab
Original Note:
Today's Communication / Plan
-
Continue aspirin, brilinta
Continue high intensity statin
Bp stable on lisinopril
A1c pending
Impression / Plan
-
PCP: None
Machine I Engraver: None prior to admission, initially seen by Dr. Taveras
Impression:
Presented with chest pain
NSTEMI, peak trop 69
MV CAD
s/p PCI of OM1, mid and distal circumflex 11/24/2024
Planned staged intervention of prox to mid RCA
Elevated glucose of 345 in ER
Leukocytosis
Tobacco abuse
Family h/o premature CAD
Echo 11/24/2024: EF 53%, mild cLVH, mild MR
Plan:
-Presented with chest pain that awoke him from sleep at 3AM. Admitted with NSTEMI, peak troponin 69, trending down thereafter.
-MV CAD noted on cath. Underwent PCI of OM1, mid and distal circumflex 11/24. Planned for staged PCI of proximal to mid RCA. Await final cath report.
-Continue aspirin 81mg daily and Brilinta 90mg BID.
-Echo 11/24 as noted above w/ EF 53% and mild MR.
-Elevated glucose of 345 noted in ER. No known h/o DM, but does not follow w/ PCP. A1c pending
-LDL 162. New to lipitor 80mg daily.
-Smoking cessation.
-BP stable, continue lisinopril 2.5mg daily.
-Cardiac rehab
HPI: Alberto is a 54 year old male with PMH of tobacco abuse and family h/o premature CAD who presented to [facility] for evaluation of chest pain. He states he woke up around 3AM with left sided chest pressure which he describes as a 2/10 annoying ache.
He took 3 TUMS to see if this would relieve the pain, however pain persisted. This AM he still had the discomfort, so took more TUMS at 7AM, but still pain did not resolve, so he came to ER for evaluation. He notes he had intermittent pains like
this over the past few months, but typically he takes TUMS and the pain resolves within 30 minutes to an hour. He states the pain was persistent at 2/10 severity and did not get better or worse with walking his dogs, changing positions, or drinking
coffee. In ER, ECG showed SR with no acute ischemic changes, however initial troponin returned elevated at 0.892. He was given 324mg of aspirin in ER and SL nitro. With this, he states the discomfort has improved, but does still feel 'something is
going on' in his chest, 1/10 in severity. Started on heparin and cardiology consulted. He notes he has not had routine medical care, but gets 'yearly work physicals' and notes he was never told of any abnormality with this. He smokes 2 packs of
cigarettes per week and drinks alcohol occasionally. He does have strong family h/o CAD on his mothers side.
Progress Note - Machine I Engraver
Subjective
Date of Service: November 25, 2024
Feeling well this AM. No recurrent chest pain.
Objective
Labs:
11/25/24 03:20
11/25/24 03:19
Labs
Hgb 16.3 g/dL (13.0-18.0) 11/25/24 03:20
Hct 47.4 % (39.0-52.0) 11/25/24 03:20
Plt Count 242 10^3/uL (130-400) 11/25/24 03:20
PT 14.0 Sec (11.4-14.6) 11/24/24 09:22
INR 1.05 11/24/24 09:22
APTT Cancelled 11/24/24 16:47
Sodium 134 mmol/L (135-145) L 11/25/24 03:19
Potassium 4.2 mmol/L (3.5-5.1) 11/25/24 03:19
BUN 10 mg/dl (9-20) 11/25/24 03:19
Creatinine 0.5 mg/dL (0.7-1.3) L 11/25/24 03:19
Glucose 311 mg/dl (70-99) H 11/25/24 03:19
Troponins
11/24/24 11/24/24 11/24/24
09:22 15:43 21:51
Troponin I 0.892 H* 14.400 H* D 69.000 H* D
11/25/24
03:20
Troponin I 31.200 H* D
Vital Signs and I&O:
Vital Signs
Temp Pulse Resp BP Pulse Ox
98.3 F 80 17 101/65 96
11/25/24 03:11 11/25/24 03:00 11/25/24 03:11 11/25/24 02:00 11/25/24 03:11
Vital Signs
Temp Pulse Resp BP Pulse Ox
98.3 F 80 17 101/65 96
11/25/24 03:11 11/25/24 03:00 11/25/24 03:11 11/25/24 02:00 11/25/24 03:11
Intake & Output
11/23/24 11/24/24 11/25/24 11/26/24
06:59 06:59 06:59 06:59
Intake Total 956 / 956
Output Total 300 / 300
Balance 656 / 656
Physical Exam
Physical Exam
GEN: No distress, awake, alert, oriented x3
HEENT: supple, anicteric, mmm
LUNGS: CTA b/l, no wheezes/rales
CV: Reg, S1/S2, no murmur
EXT: No clubbing, cyanosis, or edema
NEURO: Gross non-focal
SKIN: Warm, dry, no rash
[2024-11-25 07:25] LABS: Glucose - Point of Care 257 mg/dl (70-99)
[2024-11-25] MEDS: NOVOLOG FLEXPEN-LOW RESISTANCE 3 UNITS SC ×2 (08:03→17:54)
[2024-11-25] MEDS: BRILINTA 90 MG PO ×2 (08:04→19:59)
[2024-11-25] MEDS: ZESTRIL 2.5 MG PO (08:04)
[2024-11-25] MEDS: LOW STRENGTH ASPIRIN 81 MG PO (08:04)
[2024-11-25 10:42] LABS: Glycohemoglobin (HgbA1c) 12.3 % (4.0-5.6)
[2024-11-25 11:34] LABS: Glucose - Point of Care 314 mg/dl (70-99)
[2024-11-25] MEDS: NOVOLOG FLEXPEN-LOW RESISTANCE 4 UNITS SC (11:44)
--- NOTE | 2024-11-25 12:12 | PTCARENOTE ---
Patient up walking in halls today. Right radial old drainage and right femoral dressing intact. NSR at rest. Sinus tachycardia 120's-130's with ambulation. Blood sugar 314 s/s coverage given. Denies chest pain, BP 99/62
--- NOTE | 2024-11-25 14:26 | W.PN.HOSP.TC ---
Today's Communication/Plan
-
Staged PCI on Wednesday
Assessment / Plan
Assessment / Plan
NAD
Scleral Anicteric
MMM
No JVD
CTABL
RRR, S1/S2
Soft, NT, ND, BS+
Right wrist without hematoma, right groin without hematoma
Warm, Dry
AAOx3
Calm
Multivessel coronary artery disease
S/p PCI to the OM1, mid/distal circumflex. Plan PCI to the proximal/mid RCA on Wednesday
Continue DAPT and statin
NSTEMI
See above. Do not trend troponins any further as coronaries have been engaged and likely will be significantly higher
Diabetes,
Pending A1c
Accu-Cheks
Sliding scale
Goal blood glucose 140-180
Carb controlled diet
Tobacco abuse
Discussed smoking sensation
Does not want nicotine replacement therapy tells me he is doing perfectly fine without any craving
Anticipated Discharge: > 48 hours
Subjective/Interval History
-
Date of Service: November 25, 2024
Seen and examined with. No new complaints. No acute overnight events.
Taken back to the User Experience Manager last night. Right groin access. No hematoma no pain at site. No belly pain no back pain.
Objective Data
-
Labs:
Laboratory Results
11/25/24 11/25/24
03:19 03:20
WBC 12.9 H
Hgb 16.3
Hct 47.4
Plt Count 242
Sodium 134 L
Potassium 4.2
Chloride 103
Carbon Dioxide 21 L
BUN 10
Creatinine 0.5 L
Glucose 311 H
Calcium 9.3 D
Vital Signs:
Vital Signs
Temp Pulse Resp BP Pulse Ox
99.2 F 117 20 106/69 95
03/01/25 11:30 11/25/24 10:45 11/25/24 11:30 11/25/24 08:04 11/25/24 11:30
I&O
11/24/24 11/25/24 11/26/24
06:59 06:59 06:59
Intake Total 956 / 956
Output Total 300 / 300
Balance 656 / 656
[2024-11-25 17:42] LABS: Glucose - Point of Care 270 mg/dl (70-99)
[2024-11-25] MEDS: LIPITOR 80 MG PO (17:55)
[2024-11-25 21:44] LABS: Glucose - Point of Care 234 mg/dl (70-99)
[2024-11-26] VITALS (9 sets, daily range): BP systolic 95–130; BP diastolic 63–81
--- NOTE | 2024-11-26 00:33 | PTCARENOTE ---
Pt. NSR - ST (rate up to 130's with activity only) - quickly resumes rate 80's-90's at rest. No complaints of chest pain/discomfort. Right radial and groin cath sites SOLUTION SPECIALIST with no hematoma assessed, peripheral circulation WNL. Pt. currently
sleeping.
[2024-11-26 07:47] LABS: Glucose - Point of Care 274 mg/dl (70-99)
--- NOTE | 2024-11-26 08:05 | W.PN.CARDCBS ---
Today's Communication / Plan
-
N.p.o. for left heart cath in the a.m.
Plan PCI
hest pain free
Impression / Plan
-
PCP: None
Assistant Refinery Operator: None prior to admission, initially seen by Dr. Taveras
Impression:
Presented with chest pain
NSTEMI, peak trop 69
MV CAD
s/p PCI of OM1, mid and distal circumflex 11/24/2024
Planned staged intervention of prox to mid RCA
Elevated glucose of 345 in ER
Leukocytosis
Tobacco abuse
Family h/o premature CAD
Echo 11/24/2024: EF 53%, mild cLVH, mild MR
Plan:
-Planning PCI on Wednesday n.p.o. after midnight
-MV CAD noted on cath. Underwent PCI of OM1, mid and distal circumflex 11/24. Planned for staged PCI of proximal to mid RCA
-Continue aspirin 81mg daily and Brilinta 90mg BID.
-Echo 11/24 as noted above w/ EF 53% and mild MR.
-Elevated glucose of 345 noted in ER. No known h/o DM, but does not follow w/ PCP. A1c pending
-LDL 162. New to lipitor 80mg daily.
-Smoking cessation.
-BP stable, continue lisinopril 2.5mg daily.
-Cardiac rehab
HPI: Alberto is a 54 year old male with PMH of tobacco abuse and family h/o premature CAD who presented to [facility] for evaluation of chest pain. He states he woke up around 3AM with left sided chest pressure which he describes as a 2/10 annoying ache.
He took 3 TUMS to see if this would relieve the pain, however pain persisted. This AM he still had the discomfort, so took more TUMS at 7AM, but still pain did not resolve, so he came to ER for evaluation. He notes he had intermittent pains like
this over the past few months, but typically he takes TUMS and the pain resolves within 30 minutes to an hour. He states the pain was persistent at 2/10 severity and did not get better or worse with walking his dogs, changing positions, or drinking
coffee. In ER, ECG showed SR with no acute ischemic changes, however initial troponin returned elevated at 0.892. He was given 324mg of aspirin in ER and SL nitro. With this, he states the discomfort has improved, but does still feel 'something is
going on' in his chest, 1/10 in severity. Started on heparin and cardiology consulted. He notes he has not had routine medical care, but gets 'yearly work physicals' and notes he was never told of any abnormality with this. He smokes 2 packs of
cigarettes per week and drinks alcohol occasionally. He does have strong family h/o CAD on his mothers side.
Progress Note - Assistant Refinery Operator
Subjective
Date of Service: November 26, 2024
No chest pain overnight
Objective
Labs:
11/25/24 03:20
11/25/24 03:19
Labs
Hgb 16.3 g/dL (13.0-18.0) 11/25/24 03:20
Hct 47.4 % (39.0-52.0) 11/25/24 03:20
Plt Count 242 10^3/uL (130-400) 11/25/24 03:20
PT 14.0 Sec (11.4-14.6) 11/24/24 09:22
INR 1.05 11/24/24 09:22
APTT Cancelled 11/24/24 16:47
Sodium 134 mmol/L (135-145) L 11/25/24 03:19
Potassium 4.2 mmol/L (3.5-5.1) 11/25/24 03:19
BUN 10 mg/dl (9-20) 11/25/24 03:19
Creatinine 0.5 mg/dL (0.7-1.3) L 11/25/24 03:19
Glucose 311 mg/dl (70-99) H 11/25/24 03:19
Troponins
11/24/24 11/24/24 11/24/24
09:22 15:43 21:51
Troponin I 0.892 H* 14.400 H* D 69.000 H* D
11/25/24
03:20
Troponin I 31.200 H* D
Vital Signs and I&O:
Vital Signs
Temp Pulse Resp BP Pulse Ox
99.1 F 92 20 115/64 96
11/26/24 07:41 11/26/24 05:00 11/26/24 07:41 11/26/24 02:36 11/26/24 07:41
Vital Signs
Temp Pulse Resp BP Pulse Ox
99.1 F 92 20 115/64 96
11/26/24 07:41 11/26/24 05:00 11/26/24 07:41 11/26/24 02:36 11/26/24 07:41
Intake & Output
11/24/24 11/25/24 11/26/24 11/27/24
06:59 06:59 06:59 06:59
Intake Total 956 / 956 480 / 480
Output Total 300 / 300
Balance 656 / 656 480 / 480
Physical Exam
Physical Exam
����Physical Exam
���������������������General:��no apparent distress, not acutely ill
���������������������������Neck:��supple. no meningeal signs. normal psoterior pharynx
������������������������
���������������������������Heart:��s1/s2 regular rate and rhythm, no murmur. equal radial pulses.
��������������������������Lungs: ��no acute respiratory distress. clear bilaterally
����������������������Abdomen:�normal bowel sounds. not tender. no CVAT
��������������������������Neuro:��alert and oriented. no focal neurological deficits
������������������������������Skin: ��no rash
�����������������������Psychiatric:�well kept. interactive and cooperative
�����������������������Extremities:��no edema. no calf tenderness. negative homans. good distal pulses
��
�
[2024-11-26] MEDS: NOVOLOG FLEXPEN-LOW RESISTANCE 3 UNITS SC ×3 (08:27→18:31)
[2024-11-26] MEDS: ZESTRIL 2.5 MG PO (08:29)
[2024-11-26] MEDS: LOW STRENGTH ASPIRIN 81 MG PO (08:30)
[2024-11-26] MEDS: BRILINTA 90 MG PO ×2 (08:30→20:15)
[2024-11-26] MEDS: TOPROL XL 25 MG PO (09:01)
--- NOTE | 2024-11-26 09:17 | PTCARENOTE ---
Patient walking in the room, HR 130-140's with ambulation, ST, denies pain or palpitations, BP 111/68. Toprol XL 25mg PO given, educated on purpose of medication. Blood sugar 274, 3 units of NovoLog given, breakfast given. Patient in chair, call
norton in reach
[2024-11-26 12:12] LABS: Glucose - Point of Care 285 mg/dl (70-99)
--- NOTE | 2024-11-26 15:05 | W.PN.HOSP.TC ---
Today's Communication/Plan
-
LHC tomorrow (11/27)
Assessment / Plan
Assessment / Plan
NAD
Scleral Anicteric
MMM
No JVD
CTABL
RRR, S1/S2
Soft, NT, ND, BS+
Right wrist without hematoma, right groin without hematoma
Warm, Dry
AAOx3
Calm
Multivessel coronary artery disease
S/p PCI to the OM1, mid/distal circumflex. Plan PCI to the proximal/mid RCA on Wednesday
Continue DAPT and statin
NSTEMI
See above. Do not trend troponins any further as coronaries have been engaged and likely will be significantly higher
Diabetes, new Dx
A1c 12.3
Accu-Cheks
Lantus HS (under dosed for weight), will recieve firs tdose tonight, NPO after midnight, sugars in the 200's
-May start D51/2ns at 45cc/hr if BG decreasing while NPO
Sliding scale
Goal blood glucose 140-180
Carb controlled diet
Tobacco abuse
Discussed smoking sensation
Does not want nicotine replacement therapy tells me he is doing perfectly fine without any craving
Anticipated Discharge: 24 - 48 hours
Subjective/Interval History
-
Date of Service: November 26, 2024
Seen and examined. No new complaints.
Has not had a bowel movement since Wednesday.
Tolerating diet well
No groin pain, back pain or abdominal pain
Objective Data
-
Vital Signs:
Vital Signs
Temp Pulse Resp BP Pulse Ox
99.5 F 94 20 111/68 98
11/26/24 12:07 11/26/24 10:00 11/26/24 12:07 11/26/24 09:02 11/26/24 12:07
I&O
11/25/24 11/26/24 11/27/24
06:59 06:59 06:59
Intake Total 956 / 956 480 / 480 480 / 480
Output Total 300 / 300
Balance 656 / 656 480 / 480 480 / 480
[2024-11-26 17:39] LABS: Glucose - Point of Care 257 mg/dl (70-99)
[2024-11-26] MEDS: LIPITOR 80 MG PO (18:32)
--- NOTE | 2024-11-26 19:08 | PTCARENOTE ---
Patient injected insulin in his abdomen tonight before dinner tonight.
[2024-11-26 22:13] LABS: Glucose - Point of Care 243 mg/dl (70-99)
[2024-11-26] MEDS: LANTUS 0.08 UNITS SC (22:24)
[2024-11-27] VITALS (11 sets, daily range): BP systolic 90–129; BP diastolic 54–86
--- NOTE | 2024-11-27 00:12 | PTCARENOTE ---
Pt. NSR - ST on the monitor, VSS, right radial and groin cath sites SUPERVISOR COOPERAGE SHOP and assessment WNL. Pt. has no complaints of chest pain. First dose Lantus administered, bedside diabetes teaching performed (types of insulin, peak times, measuring dose,
etc). Plan of care for AM discussed. Pt. currently sleeping.
[2024-11-27 04:13] LABS: Hemoglobin 15.8 g/dL (13.0-18.0); Mean Corp Hgb Conc. 35.1 g/dL (33.0-37.0); Mean Corpuscular Hgb 30.9 pg (27.0-31.0); Mean Corpuscular Volume 88.1 fL (80.0-94.0); Mean Platelet Volume 11.4 fL (7.4-10.4); Platelet Count 225 10^3/uL (130-400); Red Blood Cell Count 5.11 10^6/uL (4.70-6.10); Red Cell Dist. Width 12.7 % (11.5-14.5); White Blood Cell Count 12.9 10^3/uL (4.8-10.8)
[2024-11-27 04:40] LABS: Blood Urea Nitrogen 17 mg/dl (9-20); Calcium 9.1 mg/dl (8.4-10.2); Carbon Dioxide 22 mmol/L (22-30); Chloride 103 mmol/L (98-107); Estimated Creatinine Clearance > 125 ml/min; Glucose 230 mg/dl (70-99); Potassium 4.1 mmol/L (3.5-5.1); Sodium 133 mmol/L (135-145); eGFR > 60.00
[2024-11-27 07:40] LABS: ACT-LR - POC > 397 Seconds (116-155)
[2024-11-27] MEDS: ZESTRIL 2.5 MG PO (07:55)
[2024-11-27] MEDS: LOW STRENGTH ASPIRIN 81 MG PO (07:55)
[2024-11-27] MEDS: BRILINTA 90 MG PO ×2 (07:56→20:23)
[2024-11-27] MEDS: TOPROL XL 25 MG PO (07:56)
[2024-11-27 08:00] LABS: Glucose - Point of Care 231 mg/dl (70-99)
[2024-11-27] MEDS: NOVOLOG FLEXPEN-LOW RESISTANCE 2 UNITS SC ×2 (08:00→12:13)
--- NOTE | 2024-11-27 09:17 | PTCARENOTE ---
Assumed care of pt from night RN. Pt received awake and alert, Ox3. VSS, CM shows NSR with ST 80-100's, POX 97% on RA. Right radial and groin sites remain CDI. He remains NPO for Staged PCI today. Diabetes teaching initiated. He denies any
pain or discomfort at this time.
--- NOTE | 2024-11-27 11:51 | W.PN.HOSP.TC ---
Today's Communication/Plan
-
N.p.o. for [facility] today
Continue DAPT, statin, beta-geronimo, ACEi
Insulin regimen
Telemetry
Assessment / Plan
Assessment / Plan
#NSTEMI
#Multivessel CAD
-Presented as NSTEMI; s/p PCI to OM1 and mid/distal LCx
-Also with LAD lesions but iFR serially < 0.9 ischemic threshold
-Risk factors include newly diagnosed DM, tobacco use
-Echocardiogram here showed LVEF 53% with mild LVH
-Has been started on DAPT, statin, beta-geronimo, ACEi
-Cardiology following, planning for PCI to proximal/mid RCA today
-Continue to titrate GDMT per hemodynamic tolerance
-Continue on telemetry for now
-DAPT for 12 months -> P2Yi MAPT
#T2DM (new)
-A1c 12.3%; no obvious signs of associated microvascular disease though likely related to CAD
-Has since been initiated on 8 units of Lantus daily with ISS and Accu-Cheks
-Continue to monitor Accu-Cheks, BG goal 140-180
-Carbohydrate controlled diet
#Tobacco use
-Patient declined NRT, states he does not have any cravings
-Will continue to monitor and offer nicotine patch if needed
DVT prophylaxis: SCDs
Diet: N.p.o. pending [facility] today; carbohydrate controlled diet thereafter
CODE STATUS: Full code
Anticipated Discharge: 24 - 48 hours
Subjective/Interval History
-
Date of Service: November 27, 2024
Seen and examined while sitting in the chair. No acute events overnight. AFVSS this morning
He denied any chest pain, dyspnea, anginal equivalents. States he otherwise felt fine
Denies any new complaints. N.p.o. for left heart cath today with anticipated RCA stent
Objective Data
-
Labs:
Laboratory Results
11/27/24
03:39
WBC 12.9 H
Hgb 15.8
Hct 45.0
Plt Count 225
Sodium 133 L
Potassium 4.1
Chloride 103
Carbon Dioxide 22
BUN 17
Creatinine 0.6 L
Glucose 230 H
Calcium 9.1
Vital Signs:
Vital Signs
Temp Pulse Resp BP Pulse Ox
98.2 F 98 18 90/69 100
11/27/24 11:33 11/27/24 11:31 11/27/24 11:33 11/27/24 11:31 11/27/24 11:33
I&O
11/26/24 11/27/24 11/28/24
06:59 06:59 06:59
Intake Total 480 / 480 960 / 960
Balance 480 / 480 960 / 960
Review of Systems
-
History Source: Patient
All other systems: Reviewed and negative
Physical Exam
-
General: Well Developed, Well Nourished, No Apparent Distress and Comfortable
HEENT: Normocephalic, Atraumatic and Moist Mucous Membranes
Respiratory: Clear to Auscultation and Non Labored Respirations
Cardiac: Regular Rhythm, S1/S2 (soft) and Other (2+ pulses); Negative Murmur, Rub or Gallop
GI: Soft, Nontender, Nondistended and Normal Bowel Sounds
Musculoskeletal: No Clubbing, No Cyanosis and No Edema
Skin: Warm and Dry; Negative Rash
Neuro: AO x 3 and Nonfocal/Grossly Intact
Psych: Calm
Data Reviewed
-
Labs: Labs Reviewed by me and Discussed with Patient
[2024-11-27 12:09] LABS: Glucose - Point of Care 206 mg/dl (70-99)
--- NOTE | 2024-11-27 14:29 | PTCARENOTE ---
Pt to CCL for staged PVI.
[2024-11-27 15:32] LABS: ACT-LR - POC 263 Seconds (116-155)
[2024-11-27 16:02] LABS: ACT-LR - POC 277 Seconds (116-155)
--- NOTE | 2024-11-27 16:31 | ITS.CL.CATH ---
Fertilizer Applicator - Catheterization
Cardiac Catheterization
Procedure Report:
ANGIOPLASTY REPORT
Date of Procedure: November 27, 2024
INDICATIONS: Staged coronary intervention of residual high-grade proximal to mid RCA stenosis
PROCEDURES:
1. Successful placement of overlapping 2.5 x 23 mm and 2.25 x 28 mm Xience stents that were implanted at nominal pressures and postdilated to high pressures with a 2.5 mm noncompliant balloon
ACCESS: Right radial artery, 6 Palauan sheath
ANGIOPLASTY REPORT: Arterial access was obtained using ultrasound guidance and a 6 Palauan sheath was inserted in the right radial artery. Intravenous heparin was administered and we awaited a therapeutic ACT before proceeding with coronary
intervention. The patient arrived to the catheterization laboratory on background therapy of aspirin and ticagrelor.
The origin of the right coronary artery was cannulated with a 6 Palauan JR4 guiding catheter and a BMW guidewire was advanced to the distal RCA. Balloon predilation was performed in the proximal and mid RCA using a 2.0 mm Euphora balloon. A 2.25 x
28 mm Xience stent was then advanced over the guidewire and position with angiographic and fluoroscopic guidance. The stent was deployed at nominal pressures. A second 2.5 x 23 mm Xience stent was then positioned proximal and overlapping the mid
RCA stent. The more proximal stent was deployed at 12 viv. The entire stent segment was postdilated with a 2.5 mm noncompliant balloon to nominal pressures distally in 22 viv in the proximal midportion of the stents.
COMPLICATIONS: None
RADIATION SUMMARY: Fluoro Time (min): 8.8, Dose (mGy): 384, DAP (Gy.cm2) : 30.6
CONCLUSION
1. Successful placement of overlapping 2.5 x 23 mm and 2.25 x 28 mm from the proximal to mid RCA. The entire stented segment was postdilated with a 2.5 mm noncompliant balloon to nominal pressures distally into 22 viv in the proximal midportion of
the stent
Copy to: Dr. Cooper Taveras
[2024-11-27] MEDS: NSS 1000 IV (16:40)
--- NOTE | 2024-11-27 17:07 | PTCARENOTE ---
Assumed care of pt upon tsf from CCL post PCI. Pt arrives in room awake and alert, Ox3. VSS, CM shows NSR90's, POX 97% on right wrist. Right radial band intact, but site oozing, additional 2 cc's air inflated into band. Activity restrictions
reviewed with pt. He offers no c/o pain or discomfort.
[2024-11-27 17:17] LABS: Glucose - Point of Care 178 mg/dl (70-99)
[2024-11-27] MEDS: NOVOLOG FLEXPEN-LOW RESISTANCE 1 UNITS SC (17:18)
[2024-11-27] MEDS: NOVOLOG FLEXPEN 5 UNITS SC (17:19)
[2024-11-27] MEDS: LIPITOR 80 MG PO (17:33)
--- NOTE | 2024-11-27 20:00 | PTCARENOTE ---
report received from previous RN, walking rounds done. pt in chair, AAOx4. pt denies any pain. VSS. SR/ST on monitor, HR 80s-110s. TR band intact to left radial site. POX 98% on room air. PIV intact and patent. see worklist for full assessment, VS,
and interventions. pt resting comfortably w call norton in reach.
[2024-11-27 21:38] LABS: Glucose - Point of Care 219 mg/dl (70-99)
[2024-11-27] MEDS: LANTUS 0.15 UNITS SC (21:39)
[2024-11-28 05:43] VITALS: BP 94/81; BP 97/81
--- NOTE | 2024-11-28 06:00 | PTCARENOTE ---
VSS, no changes in assessment. SR, HR 90s. POX 98% on room air. right radial site CDI. AM labs drawn and sent. EKG done. pt sleeping between care.
[2024-11-28 06:40] LABS: % Basophils 0.2 % (0-2); % Eosinophils 1.7 % (0-6); % Immature Granulocytes 0.3 % (0-0.5); % Lymphocytes 17.8 % (20.5-51.1); Absolute Eosinophils 0.2 10^3/uL (0-0.7); Absolute Lymphocytes 2.4 10^3/uL (1.2-3.4); Absolute Monocytes 1.2 10^3/uL (0.1-0.6); Absolute Neutrophils 9.4 10^3/uL (1.4-6.5); Hematocrit 45.1 % (39.0-52.0); Hemoglobin 15.5 g/dL (13.0-18.0); Mean Corp Hgb Conc. 34.4 g/dL (33.0-37.0); Mean Corpuscular Hgb 30.9 pg (27.0-31.0); Mean Corpuscular Volume 89.8 fL (80.0-94.0); Mean Platelet Volume 11.4 fL (7.4-10.4); Nucleated Red Blood Cells % 0 % (-); Platelet Count 245 10^3/uL (130-400); Red Blood Cell Count 5.02 10^6/uL (4.70-6.10); White Blood Cell Count 13.2 10^3/uL (4.8-10.8)
[2024-11-28 06:56] VITALS: BP 114/68
[2024-11-28 06:56] LABS: Blood Urea Nitrogen 18 mg/dl (9-20); Calcium 9.2 mg/dl (8.4-10.2); Carbon Dioxide 23 mmol/L (22-30); Chloride 103 mmol/L (98-107); Estimated Creatinine Clearance > 125 ml/min; Glucose 171 mg/dl (70-99); Potassium 4.1 mmol/L (3.5-5.1); Sodium 135 mmol/L (135-145); eGFR > 60.00
[2024-11-28] MEDS: BRILINTA 90 MG PO (07:51)
[2024-11-28] MEDS: NOVOLOG FLEXPEN-LOW RESISTANCE 1 UNITS SC ×2 (07:51→11:55)
[2024-11-28] MEDS: ZESTRIL 2.5 MG PO (07:51)
[2024-11-28] MEDS: NOVOLOG FLEXPEN 5 UNITS SC ×2 (07:53→11:56)
[2024-11-28] MEDS: LOW STRENGTH ASPIRIN 81 MG PO (07:54)
[2024-11-28] MEDS: TOPROL XL 25 MG PO (07:55)
[2024-11-28 07:56] LABS: Glucose - Point of Care 198 mg/dl (70-99)
[2024-11-28 07:56] LABS: ACT-LR - POC > 397 Seconds (116-155)
--- NOTE | 2024-11-28 08:46 | PN.DE.MGMTRT ---
Insulin Management
- -
11/28/2024 Diabetes Management Consult
Patient admitted 11/24 with chest pain. No PMH, patient rarely sees doctor, last visit 3+ years ago. A1C on admission 12.3%, cr .7, eGFR > 60.
Patient had cardiac cath 11/24 and 11/27 with stenting.
Patient is awake alert and oriented able to discuss diabetes management. is at bedside and supportive. States he did have thirst and frequent urination explained these are hallmark symptoms of diabetes. Discussed implications of A1C and need
for insulin.
Received lantus 15 units @ hs , fasting glucose this AM 171 venous, 198 POC. Will increase HS lantus to 18 units. Received 5 units novolog with dinner, HS glucose 219.
Reviewed steps for insulin pen prep and injection technique as well as injection sites, printed instructions with pictures provided.
Explained action of each insulin, storage of pens not in use and importance of glucose testing. All questions answered.
Discussed the benefits of Farxiga, patient and agreeable. Will give first dose now then daily.
RX for test strips, lancets, Farxiga and insulin pen needles sent to pharmacy.
Discussed with nurse.
Diabetes History
- -
Type of Diabetes: 2 requiring insulin
Pre-Admission Diabetes Regimen
11/28/24
05:44
Creatinine 0.7
Lab Results
Hemoglobin A1c 12.3 % (4.0-5.6) H 11/25/24 03:20
Insulin Pump Settings
IP Diabetes Regimen
11/27/24 11/27/24 11/27/24
12:08 17:16 21:36
Glucose
POC Glucose 206 H 178 H 219 H
11/28/24 11/28/24
05:44 07:48
Glucose 171 H
POC Glucose 198 H
Meal type: Dinner
Meal type: Breakfast
Patient Education
--- NOTE | 2024-11-28 10:39 | W.PN.HOSP.TC ---
Today's Communication/Plan
-
Continue DAPT, statin, beta-geronimo, ACEi
Consider increasing dose of beta-geronimo
Continue on telemetry
Lantus 15 units with ISS
Blood glucose goal 140-180
Assessment / Plan
Assessment / Plan
#NSTEMI
#Multivessel CAD
-Presented as NSTEMI; s/p PCI to OM1, mid/distal LCx, mid/proximal RCAx2
-Also with LAD lesions but iFR serially < 0.9 ischemic threshold
-Risk factors include newly diagnosed DM, tobacco use
-Echocardiogram here showed LVEF 53% with mild LVH
-Has been started on DAPT, statin, beta-geronimo, ACEi
-Continue to titrate GDMT per hemodynamic tolerance
-Continue on telemetry for now
-DAPT for 12 months -> P2Yi MAPT
#T2DM (new)
-A1c 12.3%; no obvious signs of associated microvascular disease though likely related to CAD
-Has since been initiated on 15 units of Lantus daily with ISS and Accu-Cheks
-Continue to monitor Accu-Cheks, BG goal 140-180
-Carbohydrate controlled diet
#Tobacco use
-Patient declined NRT, states he does not have any cravings
-Will continue to monitor and offer nicotine patch if needed
DVT prophylaxis: SCDs
Diet: carbohydrate controlled diet thereafter
CODE STATUS: Full code
Anticipated Discharge: Within 24 hours
Subjective/Interval History
-
Date of Service: November 28, 2024
Seen and examined at bedside. No acute events reported overnight. No events per telemetry. AFVSS
Status post PCI x 2 to the proximal/mid RCA on 11/27/2024. Denies anginal equivalents as of this morning
Denies any new complaints
Objective Data
-
Labs:
Laboratory Results
11/28/24
05:44
WBC 13.2 H
Hgb 15.5
Hct 45.1
Plt Count 245
Sodium 135
Potassium 4.1
Chloride 103
Carbon Dioxide 23
BUN 18
Creatinine 0.7
Glucose 171 H
Calcium 9.2
Vital Signs:
Vital Signs
Temp Pulse Resp BP Pulse Ox
99 F 95 20 114/68 97
11/28/24 06:56 11/28/24 07:00 11/28/24 06:56 11/28/24 06:56 11/28/24 06:56
I&O
11/27/24 11/28/24 11/29/24
06:59 06:59 06:59
Intake Total 960 / 960 250 / 250
Balance 960 / 960 250 / 250
Review of Systems
-
History Source: Patient
All other systems: Reviewed and negative
Physical Exam
-
General: Well Developed, No Apparent Distress and Obese
HEENT: Normocephalic, Atraumatic and Moist Mucous Membranes
Respiratory: Clear to Auscultation and Non Labored Respirations
Cardiac: Regular Rhythm, S1/S2 and Other (2+ pulses); Negative Murmur, Rub or Gallop
GI: Soft, Nontender, Nondistended and Normal Bowel Sounds
Musculoskeletal: No Clubbing, No Cyanosis, No Edema and Normal Gait & Station
Skin: Warm, Dry and Normal Turgor; Negative Rash
Neuro: AO x 3 and Nonfocal/Grossly Intact
Psych: Calm
Data Reviewed
-
Labs: Labs Reviewed by me and Discussed with Patient
[2024-11-28 10:45] VITALS: BP 112/80
--- NOTE | 2024-11-28 10:47 | W.PN.CARDCBS ---
Addendum entered and electronically signed by Garret Aguirre DO 11/28/24 11:47:
I saw and examined the patient.
The Drag Down's note was reviewed and I agree with the note.
Comment:
Plan:
Stable cv status for d/c
Reviewed cath with pt
Outpt cardiac rehab.
New DM appreciate DM educator, HbA1c 12.3%
smoking cessation discussed
Cont DAPT
Discussed with at bedside.
Original Note:
Today's Communication / Plan
-
doing well
continue asa, brilinta, lipitor, toprol, lisinopril, insulin
cardiac rehab
OP cardiac follow up arranged
ok for DC to home today
Impression / Plan
-
PCP: None
Ceo And Co Founder: None prior to admission, initially seen by Dr. Taveras
Impression:
Presented with chest pain
NSTEMI, peak trop 69
MV CAD
s/p PCI of OM1, mid and distal circumflex 11/24/2024
Planned staged intervention of prox to mid RCA
Elevated glucose of 345 in ER
Leukocytosis
Tobacco abuse
Family h/o premature CAD
Echo 11/24/2024: EF 53%, mild cLVH, mild MR
Plan:
-Patient presented with chest pain and ruled in for NSTEMI with peak troponin of 69. Cath showed multivessel CAD and CT surgery was consulted. There was concern for poor targets and he underwent staged PCI of OM1, circumflex, RCA 11/24/2024 and
11/27/2024.
-Echo with EF 53% and mild MR
-All meds new for patient. Continue aspirin and Brilinta. Discussed they should not be stopped for any reason without discussing with therapy tech. Continue low-dose Toprol, lisinopril
-Continue high intensity statin therapy. LDL 162
-A1c 12.3%. Discussed importance of strict diabetic control. Appreciate diabetic education. Started on insulin this admission. He does not have primary care physician and discussed establishing upon discharge. He will need PCP follow-up within
1 week ideally.
-Smoking cessation encouraged
-Cardiac rehab scheduled
-We discussed activity restrictions and limitations.
-Right wrist site clean dry and intact with mild ecchymoses
-We discussed return to work. Given UT as well as new diabetes with new start insulin, we discussed return to work date of 12/13 after seen for follow up in the office on 12/12.
-d/w nursing. d/w patient and at bedside. d/w hospitalist via TT.
HPI: Alberto is a 54 year old male with PMH of tobacco abuse and family h/o premature CAD who presented to [facility] for evaluation of chest pain. He states he woke up around 3AM with left sided chest pressure which he describes as a 2/10 annoying ache.
He took 3 TUMS to see if this would relieve the pain, however pain persisted. This AM he still had the discomfort, so took more TUMS at 7AM, but still pain did not resolve, so he came to ER for evaluation. He notes he had intermittent pains like
this over the past few months, but typically he takes TUMS and the pain resolves within 30 minutes to an hour. He states the pain was persistent at 2/10 severity and did not get better or worse with walking his dogs, changing positions, or drinking
coffee. In ER, ECG showed SR with no acute ischemic changes, however initial troponin returned elevated at 0.892. He was given 324mg of aspirin in ER and SL nitro. With this, he states the discomfort has improved, but does still feel 'something is
going on' in his chest, 1/10 in severity. Started on heparin and cardiology consulted. He notes he has not had routine medical care, but gets 'yearly work physicals' and notes he was never told of any abnormality with this. He smokes 2 packs of
cigarettes per week and drinks alcohol occasionally. He does have strong family h/o CAD on his mothers side.
Progress Note - Ceo And Co Founder
Subjective
Date of Service: November 28, 2024
no CP, SOB. has been ambulatory around unit without difficulty
Objective
Labs:
11/28/24 05:44
11/28/24 05:44
Labs
Hgb 15.5 g/dL (13.0-18.0) 11/28/24 05:44
Hct 45.1 % (39.0-52.0) 11/28/24 05:44
Plt Count 245 10^3/uL (130-400) 11/28/24 05:44
PT 14.0 Sec (11.4-14.6) 11/24/24 09:22
INR 1.05 11/24/24 09:22
APTT Cancelled 11/24/24 16:47
Sodium 135 mmol/L (135-145) 11/28/24 05:44
Potassium 4.1 mmol/L (3.5-5.1) 11/28/24 05:44
BUN 18 mg/dl (9-20) 11/28/24 05:44
Creatinine 0.7 mg/dL (0.7-1.3) 11/28/24 05:44
Glucose 171 mg/dl (70-99) H 11/28/24 05:44
Vital Signs and I&O:
Vital Signs
Temp Pulse Resp BP Pulse Ox
99 F 95 20 114/68 98
11/28/24 06:56 11/28/24 07:00 11/28/24 06:56 11/28/24 06:56 11/28/24 08:00
Vital Signs
Temp Pulse Resp BP Pulse Ox
99 F 95 20 114/68 98
11/28/24 06:56 11/28/24 07:00 11/28/24 06:56 11/28/24 06:56 11/28/24 08:00
Intake & Output
11/26/24 11/27/24 11/28/24 11/29/24
07:59 07:59 07:59 07:59
Intake Total 480 / 480 960 / 960 250 / 250
Balance 480 / 480 960 / 960 250 / 250
Physical Exam
Physical Exam
GEN: No distress, awake, alert, oriented x3
HEENT: supple, anicteric, mmm, eomi
LUNGS: CTA B/L, no wheezes/rales
CV: Reg, S1/S2, no murmur
ABD: soft, BS+, NT/ND
EXT: No cyanosis, clubbing, edema
NEURO: Gross non-focal
SKIN: Warm, pink, dry. No rash. R wrist site c/d/i.
[2024-11-28 11:57] LABS: Glucose - Point of Care 169 mg/dl (70-99)
[2024-11-28] MEDS: FARXIGA 10 MG PO (12:55)
[2024-11-28 14:48] VITALS: BP 108/75
--- NOTE | 2024-11-28 15:40 | PTCARENOTE ---
Pt received this am with no c/o of chest pain or sob. Right rad and right groin sites WNL. Pt discharged to home after seen by nurse informatics educator. Discharge instructions given and reviewed with good understanding and all questions answered.
--- NOTE | 2024-11-28 15:40 | PTCARENOTE ---
Pt received this am
--- NOTE | 2024-11-28 15:52 | PTCARENOTE ---
I met with Alberto and his to discuss diabetes self management prior to his discharge. I provided a Contour Next EZ glucometer and had I reviewed the proper procedure for checking a fingerstick as well as a monitoring schedule. Alberto was able
to return demonstrate a fingerstick glucose. I reinforced target glucose ranges for fasting and 2 hours post prandial. I reviewed importance of following up with the PCP to review blood glucose levels once discharged. I discussed insulin and proper
administration via an insulin pen. Long acting and rapid acting insulin were discussed and written material was provided as a reference. Alberto stated he had already self-administered numerous doses of insulin while he was admitted with RN
supervision. I instructed Alberto on hypoglycemia and he was able to verbalize appropriate treatment. I encouraged him to wear medical Identification and gave him resources to attend the outpatient DSME program for further education. Alberto will be
doing cardiac rehab for the next few weeks and feels the May DSME class will be ideal. I gave an overview of carbohydrates and encouraged Alberto to obtain more nutrition information during his cardiac rehab program. I also encouraged him to
set up an appointment with the grass farm laborer if needed and provided him with the office contact information.
--- NOTE | 2024-11-29 15:10 | W.DCSUMMARY ---
Discharge Summary
Discharge Data
Date of Admission: 11/24/24
Date of Discharge: 11/28/24
Total time spent discharging patient (in min): 31
-
Pending Results: No
Hospital Course
Discharging Physician : Raheel Rodriguez DO
Disposition : Home
Principal Discharge diagnosis :
Triple-vessel CAD not amenable to CABG
Status-post PCI to RCA x 2, OM1, LCx
IDDM 2 (new)
Chronic Discharge diagnosis :
Tobacco use
Hospital Course : 54-year-old male that presented with left-sided chest pain that awoke him from sleep, associated with radiation to his left arm and right armpit. Did not improve with antacids. Was improved with sublingual nitroglycerin. Upon
arrival patient was started on IV nitro drip. ECG initially was without obvious ischemic changes but initial troponin 0.9 consistent with NSTEMI in the context of typical chest pain. TTE demonstrated preserved LVEF and no obvious WMA. Was taken
for left heart cath with coronary angiography on 11/24/2024 which demonstrated multivessel coronary artery disease, without distal targets amenable for CABG. Decision was made for staged PCI while in the hospital. On 11/24/2024 he had PCI to the
occluded OM1 and high-grade stenosis of the left circumflex. Was taken back for coronary angiography on 11/27/2024 where 2 overlapping RCA stents were placed. Patient was started on dual antiplatelet therapy with aspirin and Brilinta, high intensity
statin, beta-geronimo, JUNIOR inhibitor, and SGLT2i. Initial labs showed hemoglobin A1c of 12.3% and he was diagnosed with new onset type 2 diabetes mellitus. Was placed onto 18 units of Lantus and 5 units of insulin aspart with meals as well as
Farxiga. JUNIOR inhibitor for renal protection as well as GDMT for obstructive CAD. Patient should be continued on DAPT for at least 1 year unless there are significant bleeding events. Should follow-up with communications assistant after discharge from the
hospital. Encouraged absolute smoking cessation, provided nicotine patches at discharge
Consultants :
Machine Brusher -- Cooper Sanford MD
Diabetes team SOFA COVER INSPECTOR -- Daniela Lima
Important imaging findings :
Transthoracic echocardiogram (11/24/2024)
CONCLUSIONS
Normal left ventricular size and systolic function.
No gross regional wall motion abnormalities are seen.
LV ejection fraction is 53% by May's method of discs.
Mild concentric left ventricular hypertrophy.
Normal diastolic function.
Normal right ventricular size.
Normal right ventricular systolic function.
Mild mitral regurgitation.
Procedure findings :
[facility] with angiography (11/24/24)
CONCLUSION
1. Hemodynamically significant stenosis in the LAD with the iFR serially measuring below the ischemic threshold
2. Complex mini crush stenting of OM1 and mid circumflex. OM1 was stented with overlapping 2.75 x 34 mm and 2.5 x 34 mm Magnus stents. Mini crush stenting was performed with placement of a 3.5 x 22 mm Magnus stent from the proximal to mid circumflex.
The crushed segment was rewired and dilated with a 2.75 mm noncompliant balloon while the mid circumflex was postdilated with a 3.5 mm noncompliant balloon. Proximal optimization was performed post dilating the proximal portion of the stent and
crush segment with a 4.0 mm noncompliant balloon
3. Successful stenting of the distal circumflex into a posterolateral branch with a 2.25 x 22 mm [place] stent that was postdilated with a 3.25 mm noncompliant balloon
RECOMMENDATIONS
1. Patient will likely return for stenting of the next 1 to mid RCA given poor distal CABG targets
2. Complex mini crush stenting of the OM1 and proximal to mid circumflex as described above.
3. Uninterrupted dual antiplatelet therapy for 12 months
4. High intensity statin and aggressive risk modification
5. Will discuss treatment options with CT surgery for LAD and diagonal atherosclerosis.
[facility] with angiography (11/27/24)
CONCLUSION
1. Successful placement of overlapping 2.5 x 23 mm and 2.25 x 28 mm from the proximal to mid RCA. The entire stented segment was postdilated with a 2.5 mm noncompliant balloon to nominal pressures distally into 22 viv in the proximal midportion of
the stent
Follow-up:
Referral provided for family physician at residents clinic
Referral provided for communications assistant
BMP 1 week after discharge to reassess kidney function
Discharge Plan
-
Patient Disposition: Home (Routine Discharge)
Discharge Diagnosis/Procedures: NSTEMI
s/p angioplasty and stents x4 to Left Circumflex/Obtuse Marginal arteries (11/24)
s/p angioplasty and stents x2 to Right Coronary artery (11/27)
Diabetes
Condition: Good
Diet: Low Cholesterol and Diabetic, Carb Controlled
Activity: No strenuous activity
Additional Activity: NO strenuous activity for 2 weeks post MT. No heavy lifting greater than 10 pounds
Driving Restrictions: No driving for 24 hours
Blood Work: BMP in 1 week
Other Services: Cardiac Rehab
Activity Restrictions/Additional Instructions:
You MUST stop smoking!
Referral provided for family doctor, contact office to schedule appointment. Referral also provided for communications assistant, office appointment scheduled for 12/12/2024 at 7:40 AM.
Contact cardiac rehab, Appointment scheduled 01/01/25 at 1 PM
Stand Alone Forms: DC Instructions- Cath/EP Lab
Referrals:
[facility] [Outside] - 01/01/25 1:00 pm
(Cardiac Rehab Orientation appointment and� First Exercise appointment is on Wednesday01/01/25 at 1pm.
The Cardiac Rehab gym is located on the first floor of the [facility].)
Lakia To MD, Resident [Family Practice Resident Year2] - in two weeks (Call to schedule)
Porsha Adams PA-C [Specified Professional Personl] - 12/12/24 7:40 am (Cardiology followup appointment)
Yogi Haddad DO [Community] - (Please call to establish PCP and arrange appointment ideally within 1 week!)
Additional Discharge Medication Instructions: Start aspirin 81 mg daily and Brilinta 90 mg twice daily every day, will be on both of these medications for 1 year
Start atorvastatin 80 mg nightly every night
Start metoprolol succinate 25 mg daily every day
Start insulin glargine 18 units nightly and insulin aspart 5 units with meals every day
Start Farxiga 10 mg daily
Use glucometer and testing strips to monitor your home blood sugars. Monitor blood sugars with each meal prior to insulin and nightly prior to insulin and write the numbers down into a booklet. Take that book with you to family doctor's
appointment.
Prescriptions:
New
Brilinta 90 mg Tablet
90 mg PO BID 30 Days Qty: 60 0RF
insulin glargine [Lantus Solostar U-100 Insulin] 100 unit/mL (3 mL) insulin pen
18 unit SC QPM 30 Days Qty: 15 0RF
atorvastatin 80 mg Tablet
80 mg PO QPM 30 Days Qty: 30 0RF
aspirin 81 mg Tablet,Chewable
81 mg PO DAILY 30 Days Qty: 30 0RF
insulin aspart U-100 100 unit/mL (3 mL) Insulin Pen
5 unit SC AC 30 Days Qty: 15 0RF
metoprolol succinate 25 mg Tablet Extended Release 24 Hr
25 mg PO DAILY 30 Days Qty: 30 0RF
lisinopril 2.5 mg Tablet
2.5 mg PO DAILY 30 Days Qty: 30 0RF
dapagliflozin propanediol [Farxiga] 10 mg Tablet
10 mg PO DAILY Qty: 30 1RF
(DME) Contour Next Test Strips Strip
Qty: 200 1RF
Rx Instructions:
Test before each meal and HS and if symptoms of hypoglycemia As Directed
(DME) lancets [Color Lancets] 21 gauge Misc
Qty: 200 1RF
Rx Instructions:
Test before each meal and HS and if symptoms of hypoglycemia As Directed
(DME) pen needle, diabetic [Anne 2nd Gen Pen Needle] 32 gauge x 5/32' Needle
Qty: 200 1RF
Rx Instructions:
For use with Lantus pen and Novolog pen AC HS
Discharge Orders:
Discharge Patient (As Directed); Ordered 11/28/24
Ordered By: Raheel Rodriguez
Care Plan Goals
Care Plan Goals:
Problem: Readiness for enhanced knowledge related to diagnosis and treatment plan
Goal: Understand your diagnosis and treatment plan needs, including medications if applicable.
Instructions: Know your diagnosis, underlying causes and treatment plan options, including medications if applicable. Consult with your health care team to learn about your diagnosis and treatment plan, including medications if applicable.
Discharge Date and Time
Discharge Date/Time: 11/28/24 17:00
Print Language: STATELESS
== END 2024-11-28 17:00 | disposition home or self-care (01) | DRG 321 ==
LOC: IVU 14:02
PROVIDERS: Internal Medicine Interventional Cardiology; Nurse Practitioner; Registered Nurse; ADMITTING PHYSICIAN Hospitalist; ATTENDING PHYSICIAN Internal Medicine; CONSULT PHYSICIAN Internal Medicine Cardiovascular Disease; EMERGENCY PHYSICIAN Emergency Medicine
PROC: 4A033BC Measurement of Arterial Pressure, Coronary, Percutaneous Approach (ICD-10-PCS; 2024-11-24)
PROC: B2151ZZ Fluoroscopy of Left Heart using Low Osmolar Contrast (ICD-10-PCS; 2024-11-24)
PROC: 027037Z Dilation of Coronary Artery, One Artery with Four or More Drug-eluting Intraluminal Devices, Percutaneous Approach (ICD-10-PCS; 2024-11-24)
PROC: 4A023N7 Measurement of Cardiac Sampling and Pressure, Left Heart, Percutaneous Approach (ICD-10-PCS; 2024-11-24)
PROC: B2111ZZ Fluoroscopy of Multiple Coronary Arteries using Low Osmolar Contrast (ICD-10-PCS; 2024-11-24)
PROC: 027035Z Dilation of Coronary Artery, One Artery with Two Drug-eluting Intraluminal Devices, Percutaneous Approach (ICD-10-PCS; 2024-11-27)
DX: I21.4 Non-ST elevation (NSTEMI) myocardial infarction (principal); D72.829 Elevated white blood cell count, unspecified; F17.210 Nicotine dependence, cigarettes, uncomplicated; E11.65 Type 2 diabetes mellitus with hyperglycemia; I25.10 Atherosclerotic heart disease of native coronary artery without angina pectoris; Z82.49 Family history of ischemic heart disease and other diseases of the circulatory system
CPT/HCPCS: 71046; 80048; 80053; 80061; 82962; 83036; 84484; 85025; 85027; 85347; 85610; 85730; 93005; 93306; 93458; 93799; 96365; 96366; 96367; 99291; C1725; C1760; C1769; C1874; C1887; C1894; C9600; C9601; Q9967

== ENCOUNTER 2025-01-24 14:10 | Outpatient (RCR) | payer OTHER, SELFPAY ==
[2025-01-01 14:24] LABS: Glucose - Point of Care 96 mg/dl (70-99)
[2025-01-01 14:45] LABS: Glucose - Point of Care 114 mg/dl (70-99)
[2025-01-01 15:17] LABS: Glucose - Point of Care 108 mg/dl (70-99)
[2025-01-03 13:06] LABS: Glucose - Point of Care 152 mg/dl (70-99)
[2025-01-03 13:59] LABS: Glucose - Point of Care 125 mg/dl (70-99)
[2025-01-05 13:01] LABS: Glucose - Point of Care 145 mg/dl (70-99)
[2025-01-05 13:58] LABS: Glucose - Point of Care 97 mg/dl (70-99)
[2025-01-08 13:09] LABS: Glucose - Point of Care 141 mg/dl (70-99)
[2025-01-08 14:09] LABS: Glucose - Point of Care 141 mg/dl (70-99)
[2025-01-10 13:11] LABS: Glucose - Point of Care 126 mg/dl (70-99)
[2025-01-10 14:08] LABS: Glucose - Point of Care 129 mg/dl (70-99)
[2025-01-12 13:04] LABS: Glucose - Point of Care 124 mg/dl (70-99)
[2025-01-12 14:03] LABS: Glucose - Point of Care 120 mg/dl (70-99)
[2025-01-15 13:08] LABS: Glucose - Point of Care 130 mg/dl (70-99)
[2025-01-15 14:04] LABS: Glucose - Point of Care 111 mg/dl (70-99)
[2025-01-17 13:06] LABS: Glucose - Point of Care 122 mg/dl (70-99)
[2025-01-17 14:01] LABS: Glucose - Point of Care 101 mg/dl (70-99)
[2025-01-19 13:09] LABS: Glucose - Point of Care 129 mg/dl (70-99)
[2025-01-19 14:04] LABS: Glucose - Point of Care 124 mg/dl (70-99)
[2025-01-22 13:08] LABS: Glucose - Point of Care 135 mg/dl (70-99)
[2025-01-22 14:01] LABS: Glucose - Point of Care 136 mg/dl (70-99)
[2025-01-24 12:58] LABS: Glucose - Point of Care 139 mg/dl (70-99)
[2025-01-24 13:56] LABS: Glucose - Point of Care 134 mg/dl (70-99)
== END 2025-01-24 23:59 | disposition home or self-care (01) ==
LOC: CRHB 14:10
PROVIDERS: ATTENDING PHYSICIAN Internal Medicine Interventional Cardiology; FAMILY PHYSICIAN Family Medicine
DX: I21.4 Non-ST elevation (NSTEMI) myocardial infarction (principal); I25.2 Old myocardial infarction (principal); Z95.5 Presence of coronary angioplasty implant and graft
CPT/HCPCS: 82962; G0422; G0423

== ENCOUNTER 2025-02-16 11:22 | Outpatient (RCR) | payer OTHER, SELFPAY ==
[2025-01-26 13:15] LABS: Glucose - Point of Care 132 mg/dl (70-99)
[2025-01-26 14:07] LABS: Glucose - Point of Care 111 mg/dl (70-99)
[2025-01-29 13:07] LABS: Glucose - Point of Care 137 mg/dl (70-99)
[2025-01-29 13:59] LABS: Glucose - Point of Care 109 mg/dl (70-99)
[2025-02-02 13:09] LABS: Glucose - Point of Care 135 mg/dl (70-99)
[2025-02-02 14:05] LABS: Glucose - Point of Care 111 mg/dl (70-99)
[2025-02-05 13:07] LABS: Glucose - Point of Care 150 mg/dl (70-99)
[2025-02-05 13:57] LABS: Glucose - Point of Care 116 mg/dl (70-99)
[2025-02-07 13:03] LABS: Glucose - Point of Care 142 mg/dl (70-99)
[2025-02-07 13:57] LABS: Glucose - Point of Care 111 mg/dl (70-99)
[2025-02-09 13:05] LABS: Glucose - Point of Care 143 mg/dl (70-99)
[2025-02-09 14:03] LABS: Glucose - Point of Care 112 mg/dl (70-99)
[2025-02-12 13:09] LABS: Glucose - Point of Care 179 mg/dl (70-99)
[2025-02-12 14:07] LABS: Glucose - Point of Care 123 mg/dl (70-99)
[2025-02-14 13:03] LABS: Glucose - Point of Care 174 mg/dl (70-99)
[2025-02-14 13:59] LABS: Glucose - Point of Care 102 mg/dl (70-99)
[2025-02-16 13:00] LABS: Glucose - Point of Care 138 mg/dl (70-99)
[2025-02-16 14:00] LABS: Glucose - Point of Care 107 mg/dl (70-99)
== END 2025-02-16 23:59 | disposition home or self-care (01) ==
LOC: CRHB 11:22
PROVIDERS: ATTENDING PHYSICIAN Internal Medicine Interventional Cardiology; FAMILY PHYSICIAN Family Medicine
DX: I21.4 Non-ST elevation (NSTEMI) myocardial infarction (principal); I25.10 Atherosclerotic heart disease of native coronary artery without angina pectoris (principal); Z95.5 Presence of coronary angioplasty implant and graft; I25.2 Old myocardial infarction
CPT/HCPCS: 82962; G0422; G0423

== ENCOUNTER 2025-03-23 13:24 | Outpatient (RCR) | payer OTHER, SELFPAY ==
[2025-02-26 14:03] LABS: Glucose - Point of Care 103 mg/dl (70-99)
[2025-02-27 12:20] LABS: Glucose - Point of Care 146 mg/dl (70-99)
[2025-03-07 13:07] LABS: Glucose - Point of Care 121 mg/dl (70-99)
[2025-03-07 14:05] LABS: Glucose - Point of Care 135 mg/dl (70-99)
[2025-03-09 12:59] LABS: Glucose - Point of Care 114 mg/dl (70-99)
[2025-03-09 14:02] LABS: Glucose - Point of Care 110 mg/dl (70-99)
[2025-03-12 13:07] LABS: Glucose - Point of Care 113 mg/dl (70-99)
[2025-03-12 14:03] LABS: Glucose - Point of Care 116 mg/dl (70-99)
[2025-03-14 13:02] LABS: Glucose - Point of Care 159 mg/dl (70-99)
[2025-03-14 14:05] LABS: Glucose - Point of Care 148 mg/dl (70-99)
[2025-03-16 13:09] LABS: Glucose - Point of Care 139 mg/dl (70-99)
[2025-03-16 14:08] LABS: Glucose - Point of Care 98 mg/dl (70-99)
[2025-03-19 13:08] LABS: Glucose - Point of Care 111 mg/dl (70-99)
[2025-03-19 14:08] LABS: Glucose - Point of Care 116 mg/dl (70-99)
[2025-03-21 13:02] LABS: Glucose - Point of Care 103 mg/dl (70-99)
[2025-03-21 14:03] LABS: Glucose - Point of Care 124 mg/dl (70-99)
[2025-03-23 13:06] LABS: Glucose - Point of Care 134 mg/dl (70-99)
[2025-03-23 14:06] LABS: Glucose - Point of Care 102 mg/dl (70-99)
== END 2025-03-23 23:59 | disposition home or self-care (01) ==
LOC: CRHB 13:24
PROVIDERS: ATTENDING PHYSICIAN Internal Medicine Interventional Cardiology; FAMILY PHYSICIAN Family Medicine
DX: I25.10 Atherosclerotic heart disease of native coronary artery without angina pectoris (principal); Z95.5 Presence of coronary angioplasty implant and graft; I25.2 Old myocardial infarction
CPT/HCPCS: 82962; G0422; G0423

== ENCOUNTER 2025-04-25 13:40 | Outpatient (RCR) | payer OTHER, SELFPAY ==
[2025-04-09 13:19] LABS: Glucose - Point of Care 125 mg/dl (70-99)
[2025-04-09 14:09] LABS: Glucose - Point of Care 106 mg/dl (70-99)
[2025-04-16 13:07] LABS: Glucose - Point of Care 169 mg/dl (70-99)
[2025-04-16 14:07] LABS: Glucose - Point of Care 107 mg/dl (70-99)
[2025-04-18 13:04] LABS: Glucose - Point of Care 101 mg/dl (70-99)
[2025-04-18 14:03] LABS: Glucose - Point of Care 114 mg/dl (70-99)
[2025-04-20 13:01] LABS: Glucose - Point of Care 133 mg/dl (70-99)
[2025-04-20 14:06] LABS: Glucose - Point of Care 111 mg/dl (70-99)
[2025-04-23 13:05] LABS: Glucose - Point of Care 107 mg/dl (70-99)
[2025-04-23 14:07] LABS: Glucose - Point of Care 119 mg/dl (70-99)
[2025-04-25 12:59] LABS: Glucose - Point of Care 138 mg/dl (70-99)
[2025-04-25 14:03] LABS: Glucose - Point of Care 121 mg/dl (70-99)
== END 2025-04-25 23:59 | disposition home or self-care (01) ==
LOC: CRHB 13:40
PROVIDERS: ATTENDING PHYSICIAN Internal Medicine Interventional Cardiology; FAMILY PHYSICIAN Family Medicine
DX: I25.10 Atherosclerotic heart disease of native coronary artery without angina pectoris (principal); Z95.5 Presence of coronary angioplasty implant and graft; I25.2 Old myocardial infarction
CPT/HCPCS: 82962; G0422; G0423

== ENCOUNTER 2025-04-27 12:53 | Outpatient (RCR) | payer OTHER, SELFPAY ==
[2025-04-27 12:58] LABS: Glucose - Point of Care 141 mg/dl (70-99)
[2025-04-27 14:33] LABS: Glucose - Point of Care 147 mg/dl (70-99)
== END 2025-04-27 15:06 | disposition home or self-care (01) ==
LOC: CRHB 12:53
PROVIDERS: ATTENDING PHYSICIAN Internal Medicine Interventional Cardiology; FAMILY PHYSICIAN Family Medicine
DX: I25.10 Atherosclerotic heart disease of native coronary artery without angina pectoris (principal); Z95.5 Presence of coronary angioplasty implant and graft; I25.2 Old myocardial infarction
CPT/HCPCS: 82962; G0422; G0423

== ENCOUNTER → 2025-07-19 07:16 | Outpatient (REF) | payer OTHER, SELFPAY | LOC: HWRCS 07:16 | PROVIDERS: ATTENDING PHYSICIAN Internal Medicine Interventional Cardiology; FAMILY PHYSICIAN Family Medicine | DX: I25.10 Atherosclerotic heart disease of native coronary artery without angina pectoris (principal) | CPT/HCPCS: 78452; 93017; A9500 ==